=== PATIENT | female | born 1935 | race Caucasian/White ===

== ENCOUNTER → 2016-11-08 | Outpatient (CLI) | payer BC ==
[~2016-11-08] MED LIST: ACET325T96 PO; ASPEC81 PO; BISA10SU38 PR; CIME-56 PO; CIPR-255 PO; CLC100 PO; CRDCD180 PO; CYCL10TA6 PO; DILT1TAB50 PO; DXY100 PO; ENAL10TA88 PO; FSM70 PO; FURO-85 PO; LCTX; METO25TA56 PO; MOMLX PO; MULT-506 PO; SIMV-150 PO; SIMV20TA2 PO; SODI1ENE PR; TYL325X PO; VLTG EXT; ZNTT/150 PO
[2016-11-08 17:26] LABS: HEMATOCRIT 44.6 % (37-47); MEAN CELL VOLUME 87.5 fL (80-100); MEAN CORPUSCULAR HEMOGLOBIN 30.2 pg (25-34); MEAN CORPUSCULAR HGB CONC 34.5 g/dl (32-36); MEAN PLATELET VOLUME 11.2 fL (7.4-10.4); PLATELET COUNT 260 K/uL (130-400); WHITE BLOOD COUNT 6.21 K/uL (4.8-10.8)
[2016-11-08 17:35] LABS: URINE APPEARANCE CLEAR (CLEAR); URINE BILIRUBIN NEG (NEG); URINE COLOR YELLOW; URINE EPITHELIAL CELL AUTO >30 /lpf (0-5); URINE NITRITE NEG (NEG); URINE SPECIFIC GRAVITY 1.015 (1.000-1.030); UROBILINOGEN NEG (NEG)
[2016-11-08 17:36] LABS: MANUAL MICROSCOPIC REQUIRED? NO; REVIEW REQ? YES
[2016-11-08 17:38] LABS: ALT/SGPT 20 U/L (12-78); AST/SGOT 19 U/L (15-37); BLOOD UREA NITROGEN 17 mg/dl (7-18); BUN/CREATININE RATIO 17.8 (10-20); CALCIUM 9.6 mg/dl (8.5-10.1); CARBON DIOXIDE 22 mmol/L (21-32); CHLORIDE 105 mmol/L (98-107); CHOLESTEROL 186 mg/dl (0-200); CREATININE 0.95 mg/dl (0.60-1.20); GLUCOSE 113 mg/dl (70-99); POTASSIUM 4.1 mmol/L (3.5-5.1); SODIUM 140 mmol/L (136-145); TRIGLYCERIDES 93 mg/dl (0-150); VERY LOW DENSITY LIPOPROT CALC 19 mg/dl
[2016-11-08 17:43] LABS: ESTIMATED AVERAGE GLUCOSE 128 mg/dl; HA1C FLAG Normal (Normal)
[2016-11-08 17:48] LABS: ALB/GLOB RATIO 1.2 (0.9-2); ALKALINE PHOSPHATASE 86 U/L (45-117); CHOLESTEROL/HDL RATIO 1.8; HDL CHOLESTEROL 104 mg/dl; LDL CHOLESTEROL CALCULATED 63 mg/dl
== END | disposition home or self-care (01) ==
LOC: C.LABBFT 11:46
PROVIDERS: ATTEND Internal Medicine
DX: N39.0 Urinary tract infection, site not specified (principal); E11.9 Type 2 diabetes mellitus without complications; E78.00 Pure hypercholesterolemia, unspecified

== ENCOUNTER → 2016-11-20 | Outpatient (CLI) | payer BC | END | disposition home or self-care (01) | LOC: C.PAPS 13:58 | PROVIDERS: ATTEND Obstetrics & Gynecology | DX: Z12.4 Encounter for screening for malignant neoplasm of cervix (principal) ==

== ENCOUNTER → 2016-12-27 | Outpatient (CLI) | payer BC ==
--- NOTE | 2016-12-27 09:15 | DIAGNOSTIC IMAGING REPORT ---
CHEST 2 VIEWS ROUTINE CLINICAL HISTORY: Edema. COMPARISON STUDY: Chest radiograph March 09, 2008. FINDINGS: Lung volumes are normal. There is no consolidation to suggest pneumonia. Moderate cardiomegaly is noted. There is pulmonary vascular congestion without overt pulmonary edema. There is no pneumothorax or pleural effusion. IMPRESSION: 1. Moderate cardiomegaly. 2. Pulmonary vascular congestion without evidence of pulmonary edema. Electronically signed by: Bennett Marie M.D. 12/27/2016 9:12 AM Dictated Date/Time: 12/27/2016 9:11 AM
--- NOTE | 2016-12-27 09:20 | DIAGNOSTIC IMAGING REPORT ---
SI JOINTS 3 OR MORE VIEWS CLINICAL HISTORY: M46.1 [id number] pain COMPARISON STUDY: None FINDINGS: Mild degenerative sclerosis of the left and to a lesser extent right sacroiliac joint. No evidence of bony ankylosis. Sacral foramina are symmetric. IMPRESSION: Mild/moderate degenerative changes of the left and to lesser extent right sacroiliac joint. Electronically signed by: Luis Monae M.D. 12/27/2016 9:18 AM Dictated Date/Time: 12/27/2016 9:09 AM
== END | disposition home or self-care (01) ==
LOC: C.RAD1850 08:39
PROVIDERS: ATTEND Physician Assistant Medical
DX: R60.9 Edema, unspecified (principal); M46.1 Sacroiliitis, not elsewhere classified; I51.7 Cardiomegaly; R09.89 Other specified symptoms and signs involving the circulatory and respiratory systems

== ENCOUNTER → 2017-01-01 | Outpatient (CLI) | payer BC ==
[2017-01-01 19:24] LABS: BLOOD UREA NITROGEN 20 mg/dl (7-18); BUN/CREATININE RATIO 18.6 (10-20); CALCIUM 9.5 mg/dl (8.5-10.1); CARBON DIOXIDE 26 mmol/L (21-32); CHLORIDE 107 mmol/L (98-107); GLUCOSE 125 mg/dl (70-99); SODIUM 141 mmol/L (136-145)
== END | disposition home or self-care (01) ==
LOC: C.LABBFT 14:17
PROVIDERS: ATTEND Physician Assistant Medical
DX: R60.9 Edema, unspecified (principal)

== ENCOUNTER 2017-01-06 21:43 | Emergency (ER) | payer BC ==
[~2017-01-06] VITALS: Ht 152.4 cm; Wt 105.7 kg
[~2017-01-06 21:43] MED LIST changes: -ACET325T96 PO; -BISA10SU38 PR; -CIPR-255 PO; -CLC100 PO; -CYCL10TA6 PO; -DILT1TAB50 PO; -DXY100 PO; -FURO-85 PO; -MOMLX PO; -SIMV-150 PO; -SODI1ENE PR; -TYL325X PO; -VLTG EXT; -ZNTT/150 PO
[2017-01-06 21:52] VITALS: TEMP 36.7; Ht 152.4 cm; Wt 105.7 kg
--- NOTE | 2017-01-06 22:11 | EMERGENCY ROOM VISIT NOTE ---
History Report prepared by Felipe: Max Almanza Under the Supervision of: Dr. Stevie Noland M.D. First contact with patient: 21:59 Chief Complaint: FALL Stated Complaint: FALL History of Present Illness The patient is an 81 year old female who presents to the Emergency Room after a fall that occurred prior to arrival. She notes that she fell reaching for the phone. The patient denies tripping, but thinks she slipped on her slippers. The patient notes that she had 2 falls today. She scraped her face during the first fall she had today. A week and a half ago, the patient had another fall. She complains of tailbone and leg pain for the past week and a half since that fall. She notes that she gets sharp pain in her legs. The discomfort is relieved with rest and worsened with movement. Source of History: patient Onset: prior to arrival Position: other (global) Quality: sharp (pain in legs) Modifying Factors (Worsening): movement Modifying Factors (Relieving): rest Note: Other associated symptoms: scraped her face, tailbone and leg pain Review of Systems See HPI for pertinent positives & negatives. A total of 10 systems reviewed and were otherwise negative. Past Medical & Surgical Medical Problems: (1) No pertinent past medical history Family History No pertinent family history Social History Smoking Status: Never Smoker Housing Status: lives alone Occupation Status: retired Current/Historical Medications Scheduled Ciprofloxacin Hcl (Cipro), 1 TAB PO BID Diltiazem HCl Coated Beads (Diltiazem HCl ER), 240 MG PO QAM Enalapril (Vasotec), 10 MG PO BID Furosemide (Lasix), 20 MG PO QAM Ranitidine (Zantac), 150 MG PO BID Simvastatin (Simvastatin), 10 MG PO QPM Allergies Coded Allergies: Celecoxib (Verified Allergy, Unknown, RASH, BUT TAKEN IBUPROFEN WITHOUT PROBLEM, 01/06/17) Sulfa Drugs (Verified Allergy, Unknown, FROM CELEBREX ALLERGY?, 01/06/17) Physical Exam Vital Signs Date Time Temp Pulse Resp B/P Pulse Ox O2 Delivery O2 Flow Rate FiO2 01/07/17 00:35 89 18 105/55 95 01/06/17 23:37 85 18 138/70 96 Room Air 01/06/17 22:18 97 Room Air 01/06/17 21:55 81 01/06/17 21:52 36.7 79 18 147/89 97 Room Air Physical Exam GENERAL: Patient is a healthy-appearing well-nourished HEAD: Normocephalic atraumatic EYES: Ocular movements intact pupils equal and react to light OROPHARYNX mucous membranes are moist no exudates present no erythema or edema present NECK: Supple no nuchal rigidity CHEST: Good equal expansion LUNGS: Clear and equal to auscultation CARDIAC: Normal S1 and S2 ABDOMEN: Soft nontender no guarding BACK: No CVA tenderness EXTREMITIES: No pain upon palpation normal muscle strength in all groups no clubbing cyanosis or edema NEURO: Patient is following commands is answering questions appropriately. Alert and oriented x3 Cranial Nerves 2-12 grossly intact Medical Decision & Procedures ER Provider Diagnostic Interpretation: X-ray results as stated below per interpretation by me and the radiologist: CT HEAD WITHOUT CONTRAST (CT) CLINICAL HISTORY: Head trauma. Multiple falls. COMPARISON STUDY: MRI the brain dated 12/23/2013 TECHNIQUE: Axial CT of the brain is performed from the vertex to the skull base. IV contrast was not administered for this examination. CT DOSE: 537.48 mGy.cm FINDINGS: No intra or extra-axial mass lesions are visualized. There is no CT evidence of acute cortical infarction. There is no evidence of midline shift. There is no acute hemorrhage. No calvarial fractures are visualized. There are moderately extensive white matter hypodensities likely on a small vessel basis. There is a left occipital calcification. 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 There is no evidence of pathologic ventricular dilatation. There is no evidence of acute sinusitis IMPRESSION: 1. No acute intracranial findings 2. Moderately extensive white matter disease, likely on a small vessel ischemic basis. This remain similar to the prior study 3. Left occipital calcification, consistent with the patient's previously described cavernoma Electronically signed by: Rakan Daigle M.D. 01/06/2017 10:42 PM Dictated Date/Time: 01/06/2017 10:39 PM X-rays interpreted by me: One view of pelvis: no acute fractures, dislocations or subluxations. Two views of Right femur: no acute fractures, dislocations or subluxations. Two views of Left femur: no acute fractures, dislocations or subluxations. Laboratory Results 01/06/17 21:50 Red Blood Count 4.61, Mean Corpuscular Volume 88.3, Mean Corpuscular Hemoglobin 30.4, Mean Corpuscular Hemoglobin Concent 34.4, Mean Platelet Volume 10.4, Neutrophils (%) (Auto) 66.4, Lymphocytes (%) (Auto) 20.0, Monocytes (%) (Auto) 12.3, Eosinophils (%) (Auto) 0.9, Basophils (%) (Auto) 0.3, Neutrophils # (Auto ) 5.02, Lymphocytes # (Auto) 1.51, Monocytes # (Auto) 0.93, Eosinophils # (Auto ) 0.07, Basophils # (Auto) 0.02 01/06/17 21:50 Test 01/06/17 21:50 01/06/17 22:30 White Blood Count 7.56 K/uL (4.8-10.8) Red Blood Count 4.61 M/uL (4.2-5.4) Hemoglobin 14.0 g/dL (12.0-16.0) Hematocrit 40.7 % (37-47) Mean Corpuscular Volume 88.3 fL (80-100) Mean Corpuscular Hemoglobin 30.4 pg (25-34) Mean Corpuscular Hemoglobin Concent 34.4 g/dl (32-36) Platelet Count 245 K/uL (130-400) Mean Platelet Volume 10.4 fL (7.4-10.4) Neutrophils (%) (Auto) 66.4 % Lymphocytes (%) (Auto) 20.0 % Monocytes (%) (Auto) 12.3 % Eosinophils (%) (Auto) 0.9 % Basophils (%) (Auto) 0.3 % Neutrophils # (Auto) 5.02 K/uL (1.4-6.5) Lymphocytes # (Auto) 1.51 K/uL (1.2-3.4) Monocytes # (Auto) 0.93 K/uL (0.11-0.59) Eosinophils # (Auto) 0.07 K/uL (0-0.5) Basophils # (Auto) 0.02 K/uL (0-0.2) RDW Standard Deviation 45.8 fL (36.4-46.3) RDW Coefficient of Variation 14.1 % (11.5-14.5) Immature Granulocyte % (Auto) 0.1 % Immature Granulocyte # (Auto) 0.01 K/uL (0.00-0.02) Anion Gap 11.0 mmol/L (3-11) Est Creatinine Clear Calc Drug Dose 40.4 ml/min Estimated GFR () 49.1 Estimated GFR (Non- 42.4 BUN/Creatinine Ratio 20.8 (10-20) Calcium Level 9.4 mg/dl (8.5-10.1) Total Bilirubin 0.4 mg/dl (0.2-1) Direct Bilirubin 0.1 mg/dl (0-0.2) Aspartate Amino Transf (AST/SGOT) 17 U/L (15-37) Alanine Aminotransferase (ALT/SGPT) 19 U/L (12-78) Alkaline Phosphatase 86 U/L (45-117) Total Creatine Kinase 182 U/L (26-192) Creatine Kinase MB 2.7 ng/ml (0.5-3.6) Creatine Kinase MB Ratio 1.5 (0-3.0) Troponin I 0.027 ng/ml (0-0.045) Total Protein 7.4 gm/dl (6.4-8.2) Albumin 4.1 gm/dl (3.4-5.0) Urine Color YELLOW Urine Appearance CLEAR (CLEAR) Urine pH 7.0 (4.5-7.5) Urine Specific [place] 1.013 (1.000-1.030) Urine Protein NEG (NEG) Urine Glucose (UA) NEG (NEG) Urine Ketones NEG (NEG) Urine Occult Blood NEG (NEG) Urine Nitrite NEG (NEG) Urine Bilirubin NEG (NEG) Urine Urobilinogen NEG (NEG) Urine Leukocyte Esterase MODERATE (NEG) Urine WBC (Auto) 5-10 /hpf (0-5) Urine RBC (Auto) 0-4 /hpf (0-4) Urine Hyaline Casts (Auto) 0 /lpf (0-5) Urine Epithelial Cells (Auto) 10-20 /lpf (0-5) Urine Bacteria (Auto) NEG (NEG) Labs reviewed by ED physician. Medications Administered Medications (Trade) Dose Ordered Sig/Stuart Route Start Time Stop Time Status Last Admin Dose Admin Ceftriaxone Sodium (Rocephin Inj) 1 gm NOW STAT IV 01/06/17 22:55 01/06/17 22:56 DC 01/06/17 23:32 1 GM ED Course 2200: Past medical records reviewed. The patient was evaluated in room C11. A complete history and physical examination was performed. 2255: Ordered Rocephin Inj 1 gm IV. 2353: At this time, I reevaluated the patient she was able to walk to the bathroom without discomfort. She feels better and states that she is ready to go home. 0003: Upon reexamination the patient is resting comfortably. I discussed results and treatment plan with the patient. She verbalizes agreement and understanding. The patient is ready for discharge. Medical Decision Differential diagnosis: Etiologies such as metabolic, infection, hypo/hyperglycemia, electrolyte abnormalities, cardiac sources, intracerebral event, toxicologic, neurologic, as well as others were entertained. This is an 81-year-old female who presents emergency department complaining of multiple falls over 3 week.. The patient reports tonight that she fell after she slipped in a slipper. She is complaining of bilateral hip pain however she has good range of motion of the hips and her strength is intact. Based on her complaint she was sent for x-rays of the pelvis as well as the femurs. This did not show any acute fracture dislocation. I will treat the patient for her urine infection pending culture results. She was started on Rocephin in the emergency department and will be continued on Cipro at home. The patient was ambulated by nursing staff and did rather well and wishes to be discharged home. I stressed the need for follow-up with her primary care physician. Patient was in agreement with the treatment plan. Impression Primary Impression: Fall Additional Impression: UTI (urinary tract infection) Scribe Attestation The scribe's documentation has been prepared under my direction and personally reviewed by me in its entirety. I confirm that the note above accurately reflects all work, treatment, procedures, and medical decision making performed by me. Departure Information Dispostion Home / Self-Care Prescriptions Ciprofloxacin Hcl (CIPRO) 500 Mg Tab 1 TAB PO BID for 7 Days, #14 TAB Prov: Stevie Noland MD 01/07/17 Referrals Kennedy Ingram M.D. (PCP) Forms HOME CARE DOCUMENTATION FORM, IMPORTANT VISIT INFORMATION Patient Instructions ED Mechanical Fall, ED UTI Cystitis Female, My [facility] Additional Instructions Need follow up with Dr Felton's office for continued back and hip pain You have been examined and treated today on an emergency basis only. This is not a substitute for, or an effort to provide, complete comprehensive medical care. It is impossible to recognize and treat all injuries or illnesses in a single emergency department visit. It is therefore important that you follow up closely with Dr Ingram. Call as soon as possible for an appointment. Thank you for your time and consideration. I look forward to speaking with you again soon. Please don't hesitate to call us if you have any questions. Problem Qualifiers Primary Impression: Fall Encounter type: initial encounter Qualified Codes: W19.XXXA - Unspecified fall, initial encounter Additional Impression: UTI (urinary tract infection) Urinary tract infection type: acute cystitis Hematuria presence: without hematuria Qualified Codes: N30.00 - Acute cystitis without hematuria
[2017-01-06 22:16] LABS: BASO % 0.3 %; BASO ABS # 0.02 K/uL (0-0.2); COMPLETE YES; EOS % 0.9 %; HEMATOCRIT 40.7 % (37-47); IG% 0.1 %; LYMPH ABS # 1.51 K/uL (1.2-3.4); MEAN CELL VOLUME 88.3 fL (80-100); MEAN CORPUSCULAR HEMOGLOBIN 30.4 pg (25-34); MEAN CORPUSCULAR HGB CONC 34.4 g/dl (32-36); MEAN PLATELET VOLUME 10.4 fL (7.4-10.4); MONO % 12.3 %; NEUT % 66.4 %; PLATELET COUNT 245 K/uL (130-400); RED BLOOD COUNT 4.61 M/uL (4.2-5.4); WHITE BLOOD COUNT 7.56 K/uL (4.8-10.8)
[2017-01-06 22:18] VITALS: O2SAT 97
--- NOTE | 2017-01-06 22:44 | DIAGNOSTIC IMAGING REPORT ---
CT HEAD WITHOUT CONTRAST (CT) CLINICAL HISTORY: Head trauma. Multiple falls. COMPARISON STUDY: MRI the brain dated 12/23/2013 TECHNIQUE: Axial CT of the brain is performed from the vertex to the skull base. IV contrast was not administered for this examination. CT DOSE: 537.48 mGy.cm FINDINGS: No intra or extra-axial mass lesions are visualized. There is no CT evidence of acute cortical infarction. There is no evidence of midline shift. There is no acute hemorrhage. No calvarial fractures are visualized. There are moderately extensive white matter hypodensities likely on a small vessel basis. There is a left occipital calcification. 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 There is no evidence of pathologic ventricular dilatation. There is no evidence of acute sinusitis IMPRESSION: 1. No acute intracranial findings 2. Moderately extensive white matter disease, likely on a small vessel ischemic basis. This remain similar to the prior study 3. Left occipital calcification, consistent with the patient's previously described cavernoma Electronically signed by: Rakan Daigle M.D. 01/06/2017 10:42 PM Dictated Date/Time: 01/06/2017 10:39 PM
[2017-01-06 22:45] LABS: URINE APPEARANCE CLEAR (CLEAR); URINE BILIRUBIN NEG (NEG); URINE COLOR YELLOW; URINE NITRITE NEG (NEG); URINE SPECIFIC GRAVITY 1.013 (1.000-1.030); UROBILINOGEN NEG (NEG)
[2017-01-06 22:46] LABS: MANUAL MICROSCOPIC REQUIRED? NO; REVIEW REQ? NO
[2017-01-06] MEDS ORDERED: CEFTRIAXONE SOD INJ 1 GM ADDVIAL IV STA (22:55)
[2017-01-06 22:58] LABS: POTASSIUM 3.7 mmol/L (3.5-5.1)
[2017-01-06] MEDS ORDERED: DILT1TAB50 PO (23:00)
[2017-01-06] MEDS ORDERED: SIMV-150 PO (23:00)
[2017-01-06] MEDS ORDERED: ZNTT/150 PO (23:01)
[2017-01-06] MEDS ORDERED: FURO-85 PO (23:01)
[2017-01-06 23:18] LABS: BUN/CREATININE RATIO 20.8 (10-20); CALCIUM 9.4 mg/dl (8.5-10.1); CKMB/CK RATIO 1.5 (0-3.0); CREATININE 1.2 mg/dl (0.60-1.20)
[2017-01-07] MEDS ORDERED: CIPR-255 PO (00:04)
[2017-01-07 00:35] VITALS: BP 105/55; PULSE 89; O2SAT 95
--- NOTE | 2017-01-07 07:41 | DIAGNOSTIC IMAGING REPORT ---
RIGHT FEMUR 2 VIEWS ROUTINE CLINICAL HISTORY: Pt c/o b/l hip pain Right pain COMPARISON: None. DISCUSSION: Moderate degenerative change of the right hip as well as right knee. No well-defined acute bony abnormality. Cortical margins are intact. There is no evidence for soft tissue swelling. IMPRESSION: Moderate degenerative change. No acute bony abnormality. Electronically signed by: Luis Monae M.D. 01/07/2017 7:39 AM Dictated Date/Time: 01/07/2017 7:39 AM
--- NOTE | 2017-01-07 07:42 | DIAGNOSTIC IMAGING REPORT ---
PELVIS 1 OR 2 VIEW ROUTINE CLINICAL HISTORY: Pt c/o b/l hip pain s/p fall COMPARISON STUDY: SI joints 12/27/2016. FINDINGS: Mild degenerative changes within the bilateral sacroiliac joints. The sacrum appears intact. No fracture or dislocation within the pelvis or hips. Soft tissues are unremarkable. IMPRESSION: No fracture or dislocation within the pelvis or hips. Electronically signed by: Daniel Luna M.D. 01/07/2017 7:40 AM Dictated Date/Time: 01/07/2017 7:39 AM
--- NOTE | 2017-01-07 07:42 | DIAGNOSTIC IMAGING REPORT ---
LEFT FEMUR 2 VIEWS ROUTINE CLINICAL HISTORY: Pt c/o b/l hip pain s/p fall trauma. Pain. COMPARISON: None. DISCUSSION: Moderate degenerative change left hip. Prior total left knee arthroplasty. No acute bony abnormality. Study is negative for fracture. There is no evidence for soft tissue swelling. IMPRESSION: No acute process. Chronic and postoperative change. Electronically signed by: Luis Monae M.D. 01/07/2017 7:40 AM Dictated Date/Time: 01/07/2017 7:40 AM
[2017-01-22] MEDS ORDERED: CYCL10TA6 PO (15:11)
== END 2017-01-07 00:36 | disposition home or self-care (01) ==
LOC: EDBD 21:43 → C.EDC 21:46
DX: M25.551 Pain in right hip (principal); M25.552 Pain in left hip; N39.0 Urinary tract infection, site not specified; W01.10XA Fall on same level from slipping, tripping and stumbling with subsequent striking against unspecified object, initial encounter; Z91.81 History of falling; Z79.899 Other long term (current) drug therapy

== ENCOUNTER 2017-01-24 08:03 | Observation (INO) | payer BC ==
[~2017-01-24] VITALS: Ht 149.9 cm; Wt 103.0 kg
[~2017-01-24 08:03] MED LIST changes: -ASPEC81 PO; -CIME-56 PO; -CRDCD180 PO; +CYCL10TA6 PO; +DILT1TAB50 PO; -FSM70 PO; +FURO-85 PO; -LCTX; -METO25TA56 PO; -MULT-506 PO; +SIMV-150 PO; -SIMV20TA2 PO; +ZNTT/150 PO
[2017-01-24 09:20] LABS: BASO % 0.2 %; BASO ABS # 0.02 K/uL (0-0.2); COMPLETE YES; EOS % 0.8 %; HEMATOCRIT 41.5 % (37-47); IG% 0.1 %; LYMPH % 12.6 %; LYMPH ABS # 1.16 K/uL (1.2-3.4); MEAN CORPUSCULAR HEMOGLOBIN 30.6 pg (25-34); MEAN PLATELET VOLUME 10.3 fL (7.4-10.4); MONO % 11.1 %; NEUT % 75.2 %; PLATELET COUNT 254 K/uL (130-400); RED BLOOD COUNT 4.61 M/uL (4.2-5.4); WHITE BLOOD COUNT 9.19 K/uL (4.8-10.8)
[2017-01-24 09:22] LABS: PARTIAL THROMBOPLASTIN RATIO 1.1; PROTHROMBIN TIME (PATIENT) 11.2 SECONDS (9.0-12.0)
[2017-01-24 09:39] LABS: BUN/CREATININE RATIO 19.2 (10-20); CALCIUM 9.3 mg/dl (8.5-10.1); CREATININE 0.95 mg/dl (0.60-1.20); MAGNESIUM 2.4 mg/dl (1.8-2.4); POTASSIUM 3.7 mmol/L (3.5-5.1)
[2017-01-24 09:48] LABS: THYROID STIMULATING HORMONE 2.38 uIu/ml (0.300-4.500)
--- NOTE | 2017-01-24 10:14 | DIAGNOSTIC IMAGING REPORT ---
RIGHT HIP UNILATERAL 2 VIEWS CLINICAL HISTORY: Right hip pain following fall. COMPARISON: Pelvis and right femur radiographs January 06, 2017. FINDINGS: Alignment of the right hip is anatomic. No acute fracture is identified. There is mild osteophytosis of the right hip. IMPRESSION: No acute fracture or dislocation of the right hip. Electronically signed by: Bennett Marie M.D. 01/24/2017 10:13 AM Dictated Date/Time: 01/24/2017 10:12 AM
--- NOTE | 2017-01-24 12:23 | DIAGNOSTIC IMAGING REPORT ---
SINGLE VIEW PELVIS CLINICAL HISTORY: Fall. Pelvic pain. FINDINGS: 2 AP portable views of the pelvis are compared to study dated 01/22/2017. The examination is degraded by large body habitus. The skeletal structures are osteopenic. There is no radiographic evidence of fracture involving the hips or bony pelvis. Mild arthritic change is noted in the hips. Sclerotic change is seen involving the sacroiliac joints and pubic symphysis. Calcified phlebolith are observed in the pelvis. There is a nonobstructed abdominal bowel gas pattern. The overlying soft tissues are within normal limits. IMPRESSION: There is no radiographic evidence of fracture involving the hips or bony pelvis. Electronically signed by: Rio Purcell M.D. 01/24/2017 12:22 PM Dictated Date/Time: 01/24/2017 12:20 PM
[2017-01-24 12:57] LABS: URINE APPEARANCE CLOUDY (CLEAR); URINE BILIRUBIN NEG (NEG); URINE COLOR YELLOW; URINE NITRITE POS (NEG); URINE PH 7.5 (4.5-7.5); URINE SPECIFIC GRAVITY 1.013 (1.000-1.030); UROBILINOGEN NEG (NEG)
[2017-01-24 12:59] LABS: MANUAL MICROSCOPIC REQUIRED? NO; REVIEW REQ? YES
[2017-01-24] MEDS ORDERED: CEFTRIAXONE SOD INJ 1 GM ADDVIAL IV STA (13:15)
--- NOTE | 2017-01-24 13:54 | EMERGENCY ROOM VISIT NOTE ---
History Report prepared by Felipe: Heather Castillo Under the Supervision of: Dr. Maurice Rene M.D. First contact with patient: 08:04 Stated Complaint: FALL History of Present Illness The patient is an 81 year old female who presents to the Emergency Room with complaints of a fall that occurred earlier this morning. She was brought to the ED via EMS from [facility], where she resides. The patient reports she got out of bed to get a drink of water this morning and "slid" trying to get back into her bed. She was unable to get up due to weakness, so she called an ambulance. She believes she may have sustained a bruise to her right shoulder during the incident. The patient denies any loss of consciousness or major injuries. She states her right hip is somewhat sore, but this may be from an old injury. She also notes she hit her left hip during the fall, but it is not currently painful. The patient admits she has been experiencing more mechanical falls recently and notes she does live alone. Pt denies LOC, headache, fevers, chills, diaphoresis, visual changes, neck pain, chest pain, breathing difficulties, nausea, vomiting, abdominal pain, back pain, melena, hematochezia , urinary symptoms, numbness, lymphadenopathy, rash, or other complaints. Source of History: patient Onset: Earlier this morning Position: other (global) Quality: other (fall) Timing: resolved Review of Systems See HPI for pertinent positives and negatives. A total of ten systems were reviewed and were otherwise negative. Past Medical & Surgical Medical Problems: (1) No pertinent past medical history Family History No pertinent family history Social History Smoking Status: Never Smoker Alcohol Use: none Drug Use: none Marital Status: Housing Status: lives alone Occupation Status: retired Current/Historical Medications Scheduled Cyclobenzaprine Hcl (Flexeril), 1 TAB PO TID Diltiazem HCl Coated Beads (Diltiazem HCl ER), 240 MG PO QAM Enalapril (Vasotec), 10 MG PO BID Furosemide (Lasix), 20 MG PO QAM Ranitidine (Zantac), 150 MG PO BID Simvastatin (Simvastatin), 10 MG PO QPM Allergies Coded Allergies: Celecoxib (Verified Allergy, Unknown, RASH, BUT TAKEN IBUPROFEN WITHOUT PROBLEM, 01/24/17) Sulfa Drugs (Verified Allergy, Unknown, FROM CELEBREX ALLERGY?, 01/24/17) Physical Exam Vital Signs Date Time Temp Pulse Resp B/P Pulse Ox O2 Delivery O2 Flow Rate FiO2 01/24/17 14:32 79 20 131/68 94 Room Air 01/24/17 12:25 72 01/24/17 12:23 71 18 139/86 94 Room Air 01/24/17 09:57 76 16 139/78 95 Room Air 01/24/17 09:05 96 Room Air 01/24/17 08:13 36.6 76 16 136/68 96 Room Air 01/24/17 08:10 75 Physical Exam GENERAL: Awake, alert, well-appearing, in no distress HENT: Normocephalic, atraumatic. Oropharynx unremarkable. EYES: Normal conjunctiva. Sclera non-icteric. NECK: Supple. No nuchal rigidity. FROM. No JVD. RESPIRATORY: Clear to auscultation. CARDIAC: Regular rate, normal rhythm. Extremities warm and well perfused. Pulses equal. ABDOMEN: Soft, non-distended. No tenderness to palpation. No rebound or guarding. No masses. RECTAL: Deferred. MUSCULOSKELETAL: Chest examination reveals no tenderness. The back is symmetrical on inspection without obvious abnormality. There is no CVA tenderness to palpation. No joint edema. Bruise to the right triceps area, no bony tenderness, normal ROM. LOWER EXTREMITIES: Right hip tenderness. Calves are equal size bilaterally and non-tender. 3+ edema in LE. No discoloration. NEURO: Normal sensorium. No focal sensory or motor deficits noted. Mild generalized weakness. SKIN: No rash or jaundice noted. Medical Decision & Procedures ER Provider Diagnostic Interpretation: These X-Rays were reviewed and interpreted by myself and the radiologist. RIGHT HIP UNILATERAL 2 VIEWS CLINICAL HISTORY: Right hip pain following fall. COMPARISON: Pelvis and right femur radiographs January 06, 2017. FINDINGS: Alignment of the right hip is anatomic. No acute fracture is identified. There is mild osteophytosis of the right hip. IMPRESSION: No acute fracture or dislocation of the right hip. Electronically signed by: Bennett Marie M.D. 01/24/2017 10:13 AM SINGLE VIEW PELVIS CLINICAL HISTORY: Fall. Pelvic pain. FINDINGS: 2 AP portable views of the pelvis are compared to study dated 01/22/2017. The examination is degraded by large body habitus. The skeletal structures are osteopenic. There is no radiographic evidence of fracture involving the hips or bony pelvis. Mild arthritic change is noted in the hips. Sclerotic change is seen involving the sacroiliac joints and pubic symphysis. Calcified phlebolith are observed in the pelvis. There is a nonobstructed abdominal bowel gas pattern. The overlying soft tissues are within normal limits. IMPRESSION: There is no radiographic evidence of fracture involving the hips or bony pelvis. Electronically signed by: Rio Purcell M.D. 01/24/2017 12:22 PM Laboratory Results 01/24/17 08:55 Red Blood Count 4.61, Mean Corpuscular Volume 90.0, Mean Corpuscular Hemoglobin 30.6, Mean Corpuscular Hemoglobin Concent 34.0, Mean Platelet Volume 10.3, Neutrophils (%) (Auto) 75.2, Lymphocytes (%) (Auto) 12.6, Monocytes (%) (Auto) 11.1, Eosinophils (%) (Auto) 0.8, Basophils (%) (Auto) 0.2, Neutrophils # (Auto ) 6.91, Lymphocytes # (Auto) 1.16, Monocytes # (Auto) 1.02, Eosinophils # (Auto ) 0.07, Basophils # (Auto) 0.02 01/24/17 08:55 Test 01/24/17 08:55 01/24/17 12:30 White Blood Count 9.19 K/uL (4.8-10.8) Red Blood Count 4.61 M/uL (4.2-5.4) Hemoglobin 14.1 g/dL (12.0-16.0) Hematocrit 41.5 % (37-47) Mean Corpuscular Volume 90.0 fL (80-100) Mean Corpuscular Hemoglobin 30.6 pg (25-34) Mean Corpuscular Hemoglobin Concent 34.0 g/dl (32-36) Platelet Count 254 K/uL (130-400) Mean Platelet Volume 10.3 fL (7.4-10.4) Neutrophils (%) (Auto) 75.2 % Lymphocytes (%) (Auto) 12.6 % Monocytes (%) (Auto) 11.1 % Eosinophils (%) (Auto) 0.8 % Basophils (%) (Auto) 0.2 % Neutrophils # (Auto) 6.91 K/uL (1.4-6.5) Lymphocytes # (Auto) 1.16 K/uL (1.2-3.4) Monocytes # (Auto) 1.02 K/uL (0.11-0.59) Eosinophils # (Auto) 0.07 K/uL (0-0.5) Basophils # (Auto) 0.02 K/uL (0-0.2) RDW Standard Deviation 47.0 fL (36.4-46.3) RDW Coefficient of Variation 14.3 % (11.5-14.5) Immature Granulocyte % (Auto) 0.1 % Immature Granulocyte # (Auto) 0.01 K/uL (0.00-0.02) Prothrombin Time 11.2 SECONDS (9.0-12.0) Prothromb Time International Ratio 1.0 (0.9-1.1) Activated Partial Thromboplast Time 29.2 SECONDS (21.0-31.0) Partial Thromboplastin Ratio 1.1 Anion Gap 8.0 mmol/L (3-11) Est Creatinine Clear Calc Drug Dose 49.2 ml/min Estimated GFR () 65.1 Estimated GFR (Non- 56.2 BUN/Creatinine Ratio 19.2 (10-20) Calcium Level 9.3 mg/dl (8.5-10.1) Magnesium Level 2.4 mg/dl (1.8-2.4) Total Bilirubin 0.8 mg/dl (0.2-1) Direct Bilirubin 0.2 mg/dl (0-0.2) Aspartate Amino Transf (AST/SGOT) 14 U/L (15-37) Alanine Aminotransferase (ALT/SGPT) 18 U/L (12-78) Alkaline Phosphatase 67 U/L (45-117) Troponin I 0.028 ng/ml (0-0.045) Pro-B-Type Natriuretic Peptide 91 pg/ml (0-1800) Total Protein 7.1 gm/dl (6.4-8.2) Albumin 3.9 gm/dl (3.4-5.0) Lipase 155 U/L (73-393) Thyroid Stimulating Hormone (TSH) 2.380 uIu/ml (0.300-4.500) Urine Color YELLOW Urine Appearance CLOUDY (CLEAR) Urine pH 7.5 (4.5-7.5) Urine Specific [place] 1.013 (1.000-1.030) Urine Protein NEG (NEG) Urine Glucose (UA) NEG (NEG) Urine Ketones NEG (NEG) Urine Occult Blood NEG (NEG) Urine Nitrite POS (NEG) Urine Bilirubin NEG (NEG) Urine Urobilinogen NEG (NEG) Urine Leukocyte Esterase SMALL (NEG) Urine WBC (Auto) 10-30 /hpf (0-5) Urine RBC (Auto) 0-4 /hpf (0-4) Urine Hyaline Casts (Auto) 1-5 /lpf (0-5) Urine Epithelial Cells (Auto) 10-20 /lpf (0-5) Urine Bacteria (Auto) 4+ (NEG) Urine Renal Epithelial Cells 0-5 /lpf (0-5) Laboratory results reviewed by me Medications Administered Medications (Trade) Dose Ordered Sig/Stuart Route Start Time Stop Time Status Last Admin Dose Admin Ceftriaxone Sodium (Rocephin Inj) 1 gm NOW STAT IV 01/24/17 13:15 01/24/17 13:17 DC 01/24/17 13:45 1 GM ED Course 0826: The patient was evaluated in room B5. A complete history and physical exam was performed. 1135: Case Management is working on getting the patient Physical Therapy and Occupational Therapy referrals. 1315: Rocephin 1 gm IV. 1350: I reevaluated the patient. Nursing and Case Management will work on a PT and OT referral for the patient. Medical Decision Triage Nursing notes reviewed. The patient's presentation and history were concerning for a fall and weakness. Etiologies such as contusion, fracture, strain, sprain, metabolic, infection, hypo/hyperglycemia, electrolyte abnormalities, cardiac sources, intracerebral event, toxicologic, neurologic, as well as others were entertained. The patient was evaluated. She had some right hip tenderness only with range of motion. There is no head injury present. She was awake and alert. Blood work imaging and urinalysis were obtained. The patient has no evidence of hip fracture or pelvic fracture. She has unremarkable CBC and chemistry panel. She has findings concerning for a UTI. She was given IV Rocephin. The patient was given lunch. Physical therapy and occupational therapy consults were performed. I was concerned about deconditioning. Family was concerned about her ability to function alone given her current state. The patient was accepted at [facility] pending insurance approval. The chart was completed utilizing Dragon Speech voice recognition software. Grammatical errors, random word insertions, pronoun errors, and incomplete sentences are an occasional consequence of this system due to software limitations, ambient noise, and hardware issues. Any formal questions or concerns about the content, text, or information contained within the body of this dictation should be directly addressed to the physician for clarification. Impression Primary Impression: Weakness Additional Impressions: UTI (urinary tract infection) Hip pain Scribe Attestation The scribe's documentation has been prepared under my direction and personally reviewed by me in its entirety. I confirm that the note above accurately reflects all work, treatment, procedures, and medical decision making performed by me. Departure Information Dispostion Transfer Acute Care Facility Referrals Kennedy Ingram M.D. (PCP) Problem Qualifiers
--- NOTE | 2017-01-24 17:55 | EMERGENCY ROOM VISIT NOTE ---
ED Visit Note Received this patient in signout from Dr. Rene. History and physical verified by me. Patient is awaiting callback from insurance company over whether or not the patient qualifies for rehabilitation stay. According to the physician preparation supervisor freezing for the insurance copy the patient does not meet rehabilitation right area however she does meet fpc facility criteria. At this point the phone call came 10 hours into this patient's stay and it is now past 5 PM on a Friday afternoon. Based on these findings I felt that the patient should be admitted to the hospital pending fpc facility placement. Case management is in agreement with this. Current/Historical Medications Scheduled Cyclobenzaprine Hcl (Flexeril), 1 TAB PO TID Diltiazem HCl Coated Beads (Diltiazem HCl ER), 240 MG PO QAM Enalapril (Vasotec), 10 MG PO BID Furosemide (Lasix), 20 MG PO QAM Ranitidine (Zantac), 150 MG PO BID Simvastatin (Simvastatin), 10 MG PO QPM Allergies Coded Allergies: Celecoxib (Verified Allergy, Unknown, RASH, BUT TAKEN IBUPROFEN WITHOUT PROBLEM, 01/24/17) Sulfa Drugs (Verified Allergy, Unknown, FROM CELEBREX ALLERGY?, 01/24/17) Vital Signs Date Time Temp Pulse Resp B/P Pulse Ox O2 Delivery O2 Flow Rate FiO2 01/24/17 16:00 67 20 112/69 93 Room Air 01/24/17 14:32 79 20 131/68 94 Room Air 01/24/17 12:25 72 01/24/17 12:23 71 18 139/86 94 Room Air 01/24/17 09:57 76 16 139/78 95 Room Air 01/24/17 09:05 96 Room Air 01/24/17 08:13 36.6 76 16 136/68 96 Room Air 01/24/17 08:10 75 Laboratory Results 01/24/17 08:55 Red Blood Count 4.61, Mean Corpuscular Volume 90.0, Mean Corpuscular Hemoglobin 30.6, Mean Corpuscular Hemoglobin Concent 34.0, Mean Platelet Volume 10.3, Neutrophils (%) (Auto) 75.2, Lymphocytes (%) (Auto) 12.6, Monocytes (%) (Auto) 11.1, Eosinophils (%) (Auto) 0.8, Basophils (%) (Auto) 0.2, Neutrophils # (Auto ) 6.91, Lymphocytes # (Auto) 1.16, Monocytes # (Auto) 1.02, Eosinophils # (Auto ) 0.07, Basophils # (Auto) 0.02 01/24/17 08:55 Test 01/24/17 08:55 01/24/17 12:30 White Blood Count 9.19 K/uL (4.8-10.8) Red Blood Count 4.61 M/uL (4.2-5.4) Hemoglobin 14.1 g/dL (12.0-16.0) Hematocrit 41.5 % (37-47) Mean Corpuscular Volume 90.0 fL (80-100) Mean Corpuscular Hemoglobin 30.6 pg (25-34) Mean Corpuscular Hemoglobin Concent 34.0 g/dl (32-36) Platelet Count 254 K/uL (130-400) Mean Platelet Volume 10.3 fL (7.4-10.4) Neutrophils (%) (Auto) 75.2 % Lymphocytes (%) (Auto) 12.6 % Monocytes (%) (Auto) 11.1 % Eosinophils (%) (Auto) 0.8 % Basophils (%) (Auto) 0.2 % Neutrophils # (Auto) 6.91 K/uL (1.4-6.5) Lymphocytes # (Auto) 1.16 K/uL (1.2-3.4) Monocytes # (Auto) 1.02 K/uL (0.11-0.59) Eosinophils # (Auto) 0.07 K/uL (0-0.5) Basophils # (Auto) 0.02 K/uL (0-0.2) RDW Standard Deviation 47.0 fL (36.4-46.3) RDW Coefficient of Variation 14.3 % (11.5-14.5) Immature Granulocyte % (Auto) 0.1 % Immature Granulocyte # (Auto) 0.01 K/uL (0.00-0.02) Prothrombin Time 11.2 SECONDS (9.0-12.0) Prothromb Time International Ratio 1.0 (0.9-1.1) Activated Partial Thromboplast Time 29.2 SECONDS (21.0-31.0) Partial Thromboplastin Ratio 1.1 Anion Gap 8.0 mmol/L (3-11) Est Creatinine Clear Calc Drug Dose 49.2 ml/min Estimated GFR () 65.1 Estimated GFR (Non- 56.2 BUN/Creatinine Ratio 19.2 (10-20) Calcium Level 9.3 mg/dl (8.5-10.1) Magnesium Level 2.4 mg/dl (1.8-2.4) Total Bilirubin 0.8 mg/dl (0.2-1) Direct Bilirubin 0.2 mg/dl (0-0.2) Aspartate Amino Transf (AST/SGOT) 14 U/L (15-37) Alanine Aminotransferase (ALT/SGPT) 18 U/L (12-78) Alkaline Phosphatase 67 U/L (45-117) Troponin I 0.028 ng/ml (0-0.045) Pro-B-Type Natriuretic Peptide 91 pg/ml (0-1800) Total Protein 7.1 gm/dl (6.4-8.2) Albumin 3.9 gm/dl (3.4-5.0) Lipase 155 U/L (73-393) Thyroid Stimulating Hormone (TSH) 2.380 uIu/ml (0.300-4.500) Urine Color YELLOW Urine Appearance CLOUDY (CLEAR) Urine pH 7.5 (4.5-7.5) Urine Specific [place] 1.013 (1.000-1.030) Urine Protein NEG (NEG) Urine Glucose (UA) NEG (NEG) Urine Ketones NEG (NEG) Urine Occult Blood NEG (NEG) Urine Nitrite POS (NEG) Urine Bilirubin NEG (NEG) Urine Urobilinogen NEG (NEG) Urine Leukocyte Esterase SMALL (NEG) Urine WBC (Auto) 10-30 /hpf (0-5) Urine RBC (Auto) 0-4 /hpf (0-4) Urine Hyaline Casts (Auto) 1-5 /lpf (0-5) Urine Epithelial Cells (Auto) 10-20 /lpf (0-5) Urine Bacteria (Auto) 4+ (NEG) Urine Renal Epithelial Cells 0-5 /lpf (0-5) Medications Administered Medications (Trade) Dose Ordered Sig/Stuart Route Start Time Stop Time Status Last Admin Dose Admin Ceftriaxone Sodium (Rocephin Inj) 1 gm NOW STAT IV 01/24/17 13:15 01/24/17 13:17 DC 01/24/17 13:45 1 GM Departure Information Impression Primary Impression: Weakness Additional Impressions: UTI (urinary tract infection) Hip pain Dispostion Transfer Acute Care Facility Referrals Kennedy Ingram M.D. (PCP) Patient Instructions [facility] Problem Qualifiers
[2017-01-24] MEDS ORDERED: ONDANSETRON INJ 2 MG/ML 2 ML VIAL IV PRN (19:15)
--- NOTE | 2017-01-24 19:18 | History and Physical ---
History & Physical Date & Time of Service: January 24, 2017 at 19:09 Chief Complaint: FALL Primary Care Physician: Kennedy Ingram M.D. History of Present Illness Source: patient, family, clinic records, hospital records This patient is a pleasant 81-year-old female that presented to the emergency department in the middle of the night last night with complaints of a fall. The patient lives by herself. She reportedly had a muscle spasm in her lower back that caused her to slumped to the ground. She denies any current pain. She was having some Right hip pain. Imaging in the emergency department was performed. No fractures noted per x-ray. The patient has had increasingly frequent falls at home. None have sounds syncopal in nature. She denies any dizziness or lightheadedness. No chest pain, heart palpitations or pressure. She reports eating and drinking normally. the patient initially had a fall this past October where she tripped over her vacuum drum cleaner. She has had bilateral lower back pain since. She has seen her family doctor for this. She was diagnosed with sacroiliitis. She was put on muscle relaxants. I spoke with the son privately. He does note that the patient seems slightly confused today. This is unusual for her. Past Medical/Surgical History Hypertension Lower extremity edema Hyperlipidemia Family History No pertinent family history Omitted secondary to age Social History Smoking Status: Never Smoker Drug Use: none Marital Status: Housing status: lives alone Occupational Status: retired Immunizations History of Influenza Vaccine: N/A History of Tetanus Vaccine?: Unknown History of Pneumococcal: Yes History of Hepatitis B Vaccine: No Multi-Drug Resistant Organisms History of MDRO: No Allergies Coded Allergies: Celecoxib (Verified Allergy, Unknown, RASH, BUT TAKEN IBUPROFEN WITHOUT PROBLEM, 01/24/17) Sulfa Drugs (Verified Allergy, Unknown, FROM CELEBREX ALLERGY?, 01/24/17) Home Medications Scheduled Cyclobenzaprine Hcl (Flexeril), 1 TAB PO TID Diltiazem HCl Coated Beads (Diltiazem HCl ER), 240 MG PO QAM Enalapril (Vasotec), 10 MG PO BID Furosemide (Lasix), 20 MG PO QAM Ranitidine (Zantac), 150 MG PO BID Simvastatin (Simvastatin), 10 MG PO QPM Review of Systems 10 system review performed and negative unless noted in HPI or below Physical Exam Vital Signs Date Time Temp Pulse Resp B/P Pulse Ox O2 Delivery O2 Flow Rate FiO2 01/24/17 18:31 86 18 132/112 94 Room Air 01/24/17 16:00 67 20 112/69 93 Room Air 01/24/17 14:32 79 20 131/68 94 Room Air 01/24/17 12:25 72 01/24/17 12:23 71 18 139/86 94 Room Air 01/24/17 09:57 76 16 139/78 95 Room Air 01/24/17 09:05 96 Room Air 01/24/17 08:13 36.6 76 16 136/68 96 Room Air 01/24/17 08:10 75 General Appearance: no apparent distress Head: normocephalic Eyes: EOMI ENT: + pertinent finding (oral mucosa slightly dry.) Neck: no JVD Respiratory/Chest: lungs clear Cardiovascular: regular rate, rhythm Abdomen/GI: normal bowel sounds, non tender, soft Back: + pertinent finding (back exam is limited as the patient is reluctant to rollover.) Extremities/Musculoskelatal: + pertinent finding (+1 pitting edema in the lower extremities bilaterally. No significant tenderness or erythema noted.) Neurologic/Psych: + pertinent finding (alert and oriented to person and place. Unsure of the year.) Skin: warm/dry Diagnostics Laboratory Results Results Past 24 Hours Test 01/24/17 08:55 01/24/17 12:30 Range/Units White Blood Count 9.19 4.8-10.8 K/uL Red Blood Count 4.61 4.2-5.4 M/uL Hemoglobin 14.1 12.0-16.0 g/dL Hematocrit 41.5 37-47 % Mean Corpuscular Volume 90.0 80-100 fL Mean Corpuscular Hemoglobin 30.6 25-34 pg Mean Corpuscular Hemoglobin Concent 34.0 32-36 g/dl Platelet Count 254 130-400 K/uL Mean Platelet Volume 10.3 7.4-10.4 fL Neutrophils (%) (Auto) 75.2 % Lymphocytes (%) (Auto) 12.6 % Monocytes (%) (Auto) 11.1 % Eosinophils (%) (Auto) 0.8 % Basophils (%) (Auto) 0.2 % Neutrophils # (Auto) 6.91 1.4-6.5 K/uL Lymphocytes # (Auto) 1.16 1.2-3.4 K/uL Monocytes # (Auto) 1.02 0.11-0.59 K/uL Eosinophils # (Auto) 0.07 0-0.5 K/uL Basophils # (Auto) 0.02 0-0.2 K/uL RDW Standard Deviation 47.0 36.4-46.3 fL RDW Coefficient of Variation 14.3 11.5-14.5 % Immature Granulocyte % (Auto) 0.1 % Immature Granulocyte # (Auto) 0.01 0.00-0.02 K/uL Prothrombin Time 11.2 9.0-12.0 SECONDS Prothromb Time International Ratio 1.0 0.9-1.1 Activated Partial Thromboplast Time 29.2 21.0-31.0 SECONDS Partial Thromboplastin Ratio 1.1 Sodium Level 141 136-145 mmol/L Potassium Level 3.7 3.5-5.1 mmol/L Chloride Level 105 98-107 mmol/L Carbon Dioxide Level 28 21-32 mmol/L Anion Gap 8.0 3-11 mmol/L Blood Urea Nitrogen 18 7-18 mg/dl Creatinine 0.95 0.60-1.20 mg/dl Est Creatinine Clear Calc Drug Dose 49.2 ml/min Estimated GFR () 65.1 Estimated GFR (Non- 56.2 BUN/Creatinine Ratio 19.2 10-20 Random Glucose 122 70-99 mg/dl Calcium Level 9.3 8.5-10.1 mg/dl Magnesium Level 2.4 1.8-2.4 mg/dl Total Bilirubin 0.8 0.2-1 mg/dl Direct Bilirubin 0.2 0-0.2 mg/dl Aspartate Amino Transf (AST/SGOT) 14 15-37 U/L Alanine Aminotransferase (ALT/SGPT) 18 12-78 U/L Alkaline Phosphatase 67 45-117 U/L Troponin I 0.028 0-0.045 ng/ml Pro-B-Type Natriuretic Peptide 91 0-1800 pg/ml Total Protein 7.1 6.4-8.2 gm/dl Albumin 3.9 3.4-5.0 gm/dl Lipase 155 73-393 U/L Thyroid Stimulating Hormone (TSH) 2.380 0.300-4.500 uIu/ml Urine Color YELLOW Urine Appearance CLOUDY CLEAR Urine pH 7.5 4.5-7.5 Urine Specific [place] 1.013 1.000-1.030 Urine Protein NEG NEG Urine Glucose (UA) NEG NEG Urine Ketones NEG NEG Urine Occult Blood NEG NEG Urine Nitrite POS NEG Urine Bilirubin NEG NEG Urine Urobilinogen NEG NEG Urine Leukocyte Esterase SMALL NEG Urine WBC (Auto) 10-30 0-5 /hpf Urine RBC (Auto) 0-4 0-4 /hpf Urine Hyaline Casts (Auto) 1-5 0-5 /lpf Urine Epithelial Cells (Auto) 10-20 0-5 /lpf Urine Bacteria (Auto) 4+ NEG Urine Renal Epithelial Cells 0-5 0-5 /lpf Microbiology Results 01/24/17 Urine Culture, Received Pending Diagnostic Radiology Patient Name: CJ RAMIREZ Unit Number: [id number] Dictated: 01/24/171011 Transcribed: 01/24/171011 Printed Date/Time: [~ rep prt dt]/[~ rep prt tm] [~ rep ct labl] - [~ rep ct ivnm] [facility] [place] [address] Dictated: 01/24/17 101 Transcribed: 01/24/171011 Printed Date/Time: [~ rep prt dt]/[~ rep prt tm] [~ rep ct labl] - [~ rep ct ivnm] Patient: CJ RAMIREZ Address1: [address] [place] [address] [address] [facility] Rec: [id number] Address2: Acct ID: [id number] [facility] Zip: [place] [address] Date: 1935 Sex: F Room/Bed: Ref Phy: Kennedy Ingram M.D. SC: CHRISTIE Att Phy: Report #: [id number] Milka Phy: Kennedy Ingram M.D. Test: HIP Admit Phy: Cook Vegetable: JOHNATHAN Interpreting Phy: Bennett Marie MD Diagnosis: FALL Ordering Phy: Maurice Rene MD Service Date: 01/24/17 Admit Date: 01/24/17 MNE: [id number] CONF: DICTATED BY: Bennett Marie MD]] CC: Maurice Rene, Kennedy Crespo M.D. Endcc: [~ rep ct add3]] RIGHT HIP UNILATERAL 2 VIEWS CLINICAL HISTORY: Right hip pain following fall. COMPARISON: Pelvis and right femur radiographs January 06, 2017. FINDINGS: Alignment of the right hip is anatomic. No acute fracture is identified. There is mild osteophytosis of the right hip. IMPRESSION: No acute fracture or dislocation of the right hip. Electronically signed by: Bennett Marie M.D. 01/24/2017 10:13 AM Dictated Date/Time: 01/24/2017 10:12 AM The status of this report is Signed. Draft = Not yet reviewed or approved by Radiologist. Signed = Reviewed and approved by Radiologist. <AttendingPhy></AttendingPhy> <FamilyPhy>Kennedy Ingram M.D.</FamilyPhy> < PrimaryPhy>Kennedy Ingram M.D.</PrimaryPhy> <UnitNumber>[id number]</UnitNumber > <VisitNumber>[id number]</VisitNumber> <PatientName>CJ RAMIREZ</ PatientName> <DateOfBirth>1935</DateOfBirth> <Location>C.EDB</Location> < ServiceDate>01/24/17</ServiceDate> <MNE>ESINDI</MNE> <OrderingPhy>Maurice Rene MD</OrderingPhy> <OrderingPhyMNE>f rep ord dr aquino</OrderingPhyMNE> < DictatingPhyMNE>f rep dict dr aquino</DictatingPhyMNE> <CCListMNE>f rep ct mne</ CCListMNE> <AdmittingPhyMNE>f pt admit dr aquino</AdmittingPhyMNE> <AttendingPhyMNE >f pt attend dr aquino</AttendingPhyMNE> <ConsultingPhyMNE>f pt consult dr aquino</ConsultingPhyMNE> <FamilyPhyMNE>f pt fam dr aquino</FamilyPhyMNE> <OtherPhyMNE>f pt other dr aquino</OtherPhyMNE> < PrimaryPhyMNE>f pt prim care dr aquino</PrimaryPhyMNE> <ReferringPhyMNE>f pt referring dr aquino</ReferringPhyMNE> Impression Assessment and Plan 81-year-old female presented again to the emergency department with a fall. No signs of syncope. It sounds like the patient had a minor back injury in October from a fall. She has been getting muscle spasms since, which have been related to all of her subsequent falls. She is however slightly confused which is different from her baseline. Urinalysis is concerning for UTI in the emergency Department Ambulatory dysfunction/frequent falls likely secondary to minor back injury -PT/OT evaluation was performed in the emergency department. Plan was for the patient to be discharged to [facility]. Unfortunately, insurance authorization was denied. -Admit to medical floor with plans of the patient being diagnosed to a SNF with PT/OT. -Voltaren gel to back prn -Tylenol 650 mg every 4 hours for pain Mild confusion/metabolic encephalopathy likely secondary to UTI -Send urine culture -Continue Rocephin 1 g IV daily Hypertension-BP slightly elevated because the patient did not take her blood pressure medications this morning -Continue diltiazem ER 2 or 40 mg daily, enalapril 10 mg twice daily Lower extremity edema -Continue Lasix 40 mg daily Hyperlipidemia -Continue simvastatin 10 mg daily GERD -Continue Zantac 150 mg twice daily DVT prophylaxis -Lovenox 40 mg subQ daily -TEDS, SCDs CODE STATUS -LEVEL I FULL CODE i personally examined pt and verified all ivey points w A [facility] back pain - in buttocks - shooting and abrupt - frequntly has been the cause of her falls notes in hindsight it all started after falling while using the sweeper - fell hard on her butt a few weeks ago ros otherwise negative except for as above o: vitals noted nad breathing unlabored no accessory muscles, no focal neuro deficits. R>L buttocks muscles in area of piriformis high tone/tender/ decreased ROM -- post-isometric relaxation muscle energy done both sides - improved ROM some, reproduced pain almost exactly - pt tolerated well a/p falls - for PT/OT then ?retry approval for rehab vs SNF for rehab back pain - related to piriformis / buttock muscle tightness. as above + voltaren gel somatic dysfunction pelvic region - OMT as above otherwise as above Level of Care Med/Surg Resuscitation Status FULL RESUSCITATION VTE Prophylaxis Risk Level: Low Given or contraindicated: Enoxaparin (Lovenox)SQ, T.E.D. Stockings, SCD's
[2017-01-24 19:35] VITALS: Ht 149.9 cm; Wt 103.0 kg
[2017-01-24] MEDS ORDERED: IV FLUIDS COMPLETED PRN (19:45)
[2017-01-24 20:07] VITALS: O2SAT 93
[2017-01-24 20:30] VITALS: BP 132/85; PULSE 78; TEMP 36.9; O2SAT 94
[2017-01-24] MEDS: ENALAPRIL MALEATE 10 MG TAB PO SCH (21:27)
[2017-01-24] MEDS: CYCLOBENZAPRINE HCL 10 MG TAB PO SCH (21:27)
[2017-01-24] MEDS: RANITIDINE HCL 150 MG TAB PO SCH (21:27)
[2017-01-24] MEDS: SIMVASTATIN 10 MG TAB PO SCH (21:27)
[2017-01-24] MEDS: ENOXAPARIN 40 MG/0.4 ML SYR SQ SCH (21:30)
[2017-01-24] MEDS: DICLOFENAC SOD 1% GEL 100 GM TUBE EXT SCH (21:31)
[2017-01-24 23:06] VITALS: BP 141/87; PULSE 79; TEMP 36.6; O2SAT 97
[2017-01-25 07:05] VITALS: BP 165/76; PULSE 95; TEMP 36.6; O2SAT 98
[2017-01-25] MEDS: DICLOFENAC SOD 1% GEL 100 GM TUBE EXT SCH ×4 (08:36→20:46)
[2017-01-25] MEDS: CYCLOBENZAPRINE HCL 10 MG TAB PO SCH ×3 (08:37→20:46)
[2017-01-25] MEDS: FUROSEMIDE 40 MG TAB PO SCH (08:37)
[2017-01-25] MEDS: DILTIAZEM HCL 240 MG CAPCR PO SCH (08:37)
[2017-01-25] MEDS: RANITIDINE HCL 150 MG TAB PO SCH ×2 (08:37→20:47)
[2017-01-25] MEDS: ENALAPRIL MALEATE 10 MG TAB PO SCH ×2 (08:38→20:47)
[2017-01-25] MEDS: ACETAMINOPHEN 325 MG TAB PO PRN (08:42)
[2017-01-25 11:57] VITALS: BP 128/83; PULSE 93; TEMP 36.3; O2SAT 94
[2017-01-25] MEDS ORDERED: BISACODYL 10 MG SUPP PR ONE (12:30)
--- NOTE | 2017-01-25 13:10 | Progress Note ---
Subjective Date of Service: January 25, 2017. Subjective Pt evaluation today including: conversation w/ patient, physical exam, lab review, review of inpatient medication list Pain: buttocks pain, better PO Intake: adequate Voiding: no voiding problems patient doing well, pleasant, oriented, admits to some pain but nothing else reviewed that we are going to work on getting her to rehab, need therapy to evaluate no UTI symptoms eating well c/o some constipation and wants a suppository Problem List Medical Problems: (1) Fall Status: Acute (2) Fall Status: Acute (3) Hip pain Status: Acute (4) Muscle spasm Status: Acute (5) UTI (urinary tract infection) Status: Acute (6) UTI (urinary tract infection) Status: Acute (7) Weakness Status: Acute Review of Systems Constitutional: + fatigue, + weakness Abdomen: + constipation Musculoskeletal: + joint pain (right hip and buttock) All Other Systems: Reviewed and Negative Medications Current Inpatient Medications Medications (Trade) Dose Ordered Sig/Stuart Route Start Time Stop Time Status Last Admin Dose Admin Ceftriaxone Sodium/Dextrose (Rocephin Inj/ Dextrose Add-[place] 50ML) 50 ml @ 100 mls/hr Q24H IV 01/25/17 14:00 01/30/17 13:59 Enoxaparin Sodium (Lovenox Inj) 40 mg QPM SQ 01/24/17 21:00 02/23/17 20:59 01/24/17 21:30 40 MG Acetaminophen (Tylenol Tab) 650 mg Q4H PRN PO 01/24/17 19:15 02/23/17 19:14 01/25/17 08:42 650 MG Ondansetron HCl (Zofran Inj) 4 mg Q6H PRN IV 01/24/17 19:15 02/23/17 19:14 Furosemide (Lasix Tab) 40 mg QAM PO 01/25/17 09:00 02/24/17 08:59 01/25/17 08:37 40 MG Cyclobenzaprine HCl (Flexeril Tab) 10 mg TID PO 01/24/17 21:00 02/23/17 20:59 01/25/17 08:37 10 MG Enalapril Maleate (Vasotec Tab) 10 mg BID PO 01/24/17 21:00 02/23/17 20:59 01/25/17 08:38 10 MG Ranitidine HCl (zANTac TAB) 150 mg BID PO 01/24/17 21:00 02/23/17 20:59 01/25/17 08:37 150 MG Simvastatin (Zocor Tab) 10 mg QPM PO 01/24/17 21:00 02/23/17 20:59 01/24/17 21:27 10 MG Diltiazem HCl (Cardizem Cd Cap) 240 mg DAILY PO 01/25/17 09:00 02/24/17 08:59 01/25/17 08:37 240 MG Miscellaneous (Iv Fluids Completed) 1 ea PRN PRN N/A 01/24/17 19:45 01/24/18 19:44 Diclofenac Sodium (Voltaren 1% Top Gel) 1 appln QID EXT 01/24/17 21:00 02/23/17 20:59 01/25/17 08:36 1 APPLN Docusate Sodium (coLACE CAP) 100 mg BID PO 01/25/17 21:00 02/24/17 20:59 Objective Vital Signs Date Time Temp Pulse Resp B/P Pulse Ox O2 Delivery O2 Flow Rate FiO2 01/25/17 11:57 36.3 93 18 128/83 94 Room Air 01/25/17 07:20 Room Air 01/25/17 07:05 36.6 95 18 165/76 98 Room Air 01/25/17 00:40 Room Air 01/24/17 23:06 36.6 79 18 141/87 97 Room Air 01/24/17 22:36 Room Air 01/24/17 20:30 36.9 78 16 132/85 94 Room Air 01/24/17 20:07 88 24 141/76 93 Room Air 01/24/17 19:35 Room Air 01/24/17 18:31 86 18 132/112 94 Room Air 01/24/17 16:00 67 20 112/69 93 Room Air 01/24/17 14:32 79 20 131/68 94 Room Air Physical Exam General Appearance: WD/WN, no apparent distress Eyes: normal inspection, EOMI, sclerae normal ENT: normal ENT inspection, hearing grossly normal, pharynx normal Neck: supple, no adenopathy, no JVD, trachea midline Respiratory/Chest: chest non-tender, lungs clear, normal breath sounds, no respiratory distress, no accessory muscle use Cardiovascular: regular rate, rhythm, no edema, no gallop, no JVD, no murmur Abdomen: normal bowel sounds, non tender, soft, no organomegaly Extremities: normal range of motion, normal inspection, no pedal edema, no calf tenderness, pelvis stable, + pertinent finding (right buttock tender) Neurologic/Psychiatric: er rn II-XII nml as tested, no motor/sensory deficits, alert, normal mood/affect, oriented x 3 Skin: normal color, warm/dry, no rash Lymphatic: no adenopathy Laboratory Results Date/Time Source Procedure Growth Status 01/24/17 12:30 Urine,Catheterized Urine Culture - Preliminary Staphylococcus Aureus Resulted Assessment and Plan 81-year-old female presented again to the emergency department with a fall. No signs of syncope. It sounds like the patient had a minor back injury in October from a fall. She has been getting muscle spasms since, which have been related to all of her subsequent falls. She is however slightly confused which is different from her baseline. Urinalysis is concerning for UTI in the emergency Department Ambulatory dysfunction/frequent falls likely secondary to minor back injury PT/OT evaluation was performed in the emergency department continue with therapy and apply for rehab to SNF Voltaren gel to back prn Tylenol 650 mg every 4 hours for pain Mild confusion/metabolic encephalopathy likely secondary to UTI: encephalopathy resolved currently urine culture growing staph aureus afebrile, normal WBC, no UTI symptoms, will continue Rocephin for now and follow up final sensitivities Constipation: colace BID and Dulcolax suppository PRN Hypertension- stable on home meds Continue diltiazem ER 2 or 40 mg daily, enalapril 10 mg twice daily Lower extremity edema Continue Lasix 40 mg daily Hyperlipidemia Continue simvastatin 10 mg daily GERD Continue Zantac 150 mg twice daily DVT prophylaxis -Lovenox 40 mg subQ daily -TEDAnuj, SCDs CODE STATUS -LEVEL I FULL CODE
[2017-01-25] MEDS ORDERED: CEFTRIAXONE SOD INJ 1 GM in DEXTROSE 5% ADD-VANTAGE 50ML 50 ML IV SCH (14:00)
[2017-01-25 15:41] VITALS: BP 104/63; PULSE 69; TEMP 36.3; O2SAT 93
[2017-01-25 20:44] VITALS: BP 139/83; PULSE 79
[2017-01-25] MEDS: ENOXAPARIN 40 MG/0.4 ML SYR SQ SCH (20:46)
[2017-01-25] MEDS: SIMVASTATIN 10 MG TAB PO SCH (20:47)
[2017-01-25] MEDS: DOCUSATE SODIUM 100 MG CAP PO SCH (20:47)
[2017-01-25 23:47] VITALS: BP 117/72; PULSE 71; TEMP 36.6; O2SAT 98
[2017-01-26] MEDS: ACETAMINOPHEN 325 MG TAB PO PRN ×2 (05:13→10:47)
[2017-01-26 07:35] VITALS: BP 125/76; PULSE 64; TEMP 36.5; O2SAT 95
[2017-01-26] MEDS: DICLOFENAC SOD 1% GEL 100 GM TUBE EXT SCH ×4 (08:11→21:21)
[2017-01-26] MEDS: DOCUSATE SODIUM 100 MG CAP PO SCH ×2 (08:11→21:22)
[2017-01-26] MEDS: ENALAPRIL MALEATE 10 MG TAB PO SCH ×2 (08:12→21:22)
[2017-01-26] MEDS: FUROSEMIDE 40 MG TAB PO SCH (08:12)
[2017-01-26] MEDS: RANITIDINE HCL 150 MG TAB PO SCH ×2 (08:13→21:22)
[2017-01-26] MEDS: DILTIAZEM HCL 240 MG CAPCR PO SCH (08:13)
[2017-01-26] MEDS: CYCLOBENZAPRINE HCL 10 MG TAB PO SCH ×3 (08:13→21:22)
[2017-01-26] MEDS ORDERED: DOXYCYCLINE HYCLATE 100 MG CAP PO ONE (09:03)
--- NOTE | 2017-01-26 12:11 | Progress Note ---
Subjective Date of Service: January 26, 2017. Subjective Pt evaluation today including: conversation w/ patient, physical exam, lab review, review of inpatient medication list Pain: mild right hip/buttock pain, better PO Intake: adequate Voiding: no voiding problems discussed MRSA UTI and plans for doxycycline no other issues, waiting for rehab Problem List Medical Problems: (1) Fall Status: Acute (2) Fall Status: Acute (3) Hip pain Status: Acute (4) Muscle spasm Status: Acute (5) UTI (urinary tract infection) Status: Acute (6) UTI (urinary tract infection) Status: Acute (7) Weakness Status: Acute Review of Systems Musculoskeletal: + joint pain (right hip and buttock) All Other Systems: Reviewed and Negative Medications Current Inpatient Medications Medications (Trade) Dose Ordered Sig/Stuart Route Start Time Stop Time Status Last Admin Dose Admin Enoxaparin Sodium (Lovenox Inj) 40 mg QPM SQ 01/24/17 21:00 02/23/17 20:59 01/25/17 20:46 40 MG Acetaminophen (Tylenol Tab) 650 mg Q4H PRN PO 01/24/17 19:15 02/23/17 19:14 01/26/17 10:47 650 MG Ondansetron HCl (Zofran Inj) 4 mg Q6H PRN IV 01/24/17 19:15 02/23/17 19:14 Furosemide (Lasix Tab) 40 mg QAM PO 01/25/17 09:00 02/24/17 08:59 01/26/17 08:12 40 MG Cyclobenzaprine HCl (Flexeril Tab) 10 mg TID PO 01/24/17 21:00 02/23/17 20:59 01/26/17 08:13 10 MG Enalapril Maleate (Vasotec Tab) 10 mg BID PO 01/24/17 21:00 02/23/17 20:59 01/26/17 08:12 10 MG Ranitidine HCl (zANTac TAB) 150 mg BID PO 01/24/17 21:00 02/23/17 20:59 01/26/17 08:13 150 MG Simvastatin (Zocor Tab) 10 mg QPM PO 01/24/17 21:00 02/23/17 20:59 01/25/17 20:47 10 MG Diltiazem HCl (Cardizem Cd Cap) 240 mg DAILY PO 01/25/17 09:00 02/24/17 08:59 01/26/17 08:13 240 MG Miscellaneous (Iv Fluids Completed) 1 ea PRN PRN N/A 01/24/17 19:45 01/24/18 19:44 Diclofenac Sodium (Voltaren 1% Top Gel) 1 appln QID EXT 01/24/17 21:00 02/23/17 20:59 01/26/17 08:11 1 APPLN Docusate Sodium (coLACE CAP) 100 mg BID PO 01/25/17 21:00 02/24/17 20:59 01/26/17 08:11 100 MG Doxycycline Hyclate (Vibramycin Cap) 100 mg BID PO 01/26/17 21:00 01/31/17 20:59 Objective Vital Signs Date Time Temp Pulse Resp B/P Pulse Ox O2 Delivery O2 Flow Rate FiO2 01/26/17 07:35 36.5 64 16 125/76 95 Room Air 01/26/17 01:05 Room Air 01/25/17 23:47 36.6 71 16 117/72 98 Room Air 01/25/17 20:44 79 139/83 01/25/17 15:55 Room Air 01/25/17 15:41 36.3 69 16 104/63 93 Room Air Physical Exam General Appearance: WD/WN, no apparent distress Eyes: normal inspection, EOMI, sclerae normal ENT: normal ENT inspection, hearing grossly normal, pharynx normal Neck: supple, no adenopathy, no JVD Respiratory/Chest: chest non-tender, lungs clear, normal breath sounds, no respiratory distress, no accessory muscle use Cardiovascular: regular rate, rhythm, no edema, no gallop, no JVD, no murmur Abdomen: normal bowel sounds, non tender, soft, no organomegaly Extremities: normal range of motion, non-tender, normal inspection, no pedal edema, no calf tenderness, pelvis stable Neurologic/Psychiatric: home day care provider II-XII nml as tested, no motor/sensory deficits, alert, normal mood/affect, oriented x 3 Skin: normal color, warm/dry, no rash Lymphatic: no adenopathy Assessment and Plan 81-year-old female presented again to the emergency department with a fall. No signs of syncope. It sounds like the patient had a minor back injury in October from a fall. She has been getting muscle spasms since, which have been related to all of her subsequent falls. She is however slightly confused which is different from her baseline. Urinalysis is concerning for UTI in the emergency Department Ambulatory dysfunction/frequent falls likely secondary to minor back injury PT/OT evaluation was performed in the emergency department continue with therapy and apply for rehab to [facility] on Friday Voltaren gel to back prn Tylenol 650 mg every 4 hours for pain Mild confusion/metabolic encephalopathy likely secondary to UTI: encephalopathy resolved currently urine culture growing MRSA, will treat with Doxycycline 100mg BID x 7 days, would use Bactrim but she has sulfa allergy afebrile, normal WBC, no UTI symptoms Constipation: colace BID and Dulcolax suppository PRN Hypertension- stable on home meds Continue diltiazem ER 240 mg daily, enalapril 10 mg twice daily Lower extremity edema Continue Lasix 40 mg daily Hyperlipidemia Continue simvastatin 10 mg daily GERD Continue Zantac 150 mg twice daily DVT prophylaxis -Lovenox 40 mg subQ daily -NIRMAL JAYs CODE STATUS -LEVEL I FULL CODE
[2017-01-26 14:53] VITALS: BP 114/79; PULSE 76; TEMP 36.5; O2SAT 95
[2017-01-26] MEDS: ENOXAPARIN 40 MG/0.4 ML SYR SQ SCH (21:22)
[2017-01-26] MEDS: SIMVASTATIN 10 MG TAB PO SCH (21:22)
[2017-01-26] MEDS: DOXYCYCLINE HYCLATE 100 MG CAP PO SCH (21:23)
[2017-01-26 21:24] VITALS: BP 141/84; PULSE 74
[2017-01-26 23:30] VITALS: BP 121/77; PULSE 78; TEMP 36.8; O2SAT 96
[2017-01-27 05:50] LABS: HEMATOCRIT 41.5 % (37-47); MEAN CELL VOLUME 90.2 fL (80-100); MEAN CORPUSCULAR HEMOGLOBIN 30.2 pg (25-34); MEAN CORPUSCULAR HGB CONC 33.5 g/dl (32-36); MEAN PLATELET VOLUME 10.3 fL (7.4-10.4); PLATELET COUNT 245 K/uL (130-400); WHITE BLOOD COUNT 6.56 K/uL (4.8-10.8)
[2017-01-27 06:18] LABS: CREATININE 0.97 mg/dl (0.60-1.20)
[2017-01-27] MEDS: DICLOFENAC SOD 1% GEL 100 GM TUBE EXT SCH ×2 (07:43→13:45)
[2017-01-27] MEDS: ACETAMINOPHEN 325 MG TAB PO PRN (07:43)
[2017-01-27] MEDS: CYCLOBENZAPRINE HCL 10 MG TAB PO SCH ×2 (07:44→13:45)
[2017-01-27] MEDS: DOXYCYCLINE HYCLATE 100 MG CAP PO SCH (07:44)
[2017-01-27] MEDS: RANITIDINE HCL 150 MG TAB PO SCH (07:44)
[2017-01-27] MEDS: DILTIAZEM HCL 240 MG CAPCR PO SCH (07:44)
[2017-01-27] MEDS: FUROSEMIDE 40 MG TAB PO SCH (07:44)
[2017-01-27 07:45] VITALS: BP 136/87; PULSE 67; TEMP 36.4; O2SAT 97
[2017-01-27] MEDS: ENALAPRIL MALEATE 10 MG TAB PO SCH (07:45)
[2017-01-27] MEDS: DOCUSATE SODIUM 100 MG CAP PO SCH (07:45)
[2017-01-27] MEDS ORDERED: VLTG EXT (12:16)
[2017-01-27] MEDS ORDERED: CLC100 PO (12:16)
[2017-01-27] MEDS ORDERED: DXY100 PO (12:16)
--- NOTE | 2017-01-27 12:28 | Discharge Instructions ---
Discharge Instructions Date of Service January 27, 2017. Admission Reason for Admission: Ambulatory Dysfunction Discharge Discharge Diagnosis / Problem: Ambulatory Dysfunction Discharge Goals Goal(s): Decrease discomfort, Improve function, Increase independence Activity Recommendations Activity Level: Assistance Required Therapies: Physical Therapy, Occupational Therapy . Additional Information Patient informed of condition: Yes Advance Directives: No DNR: No Level of Care: Skilled Communicable Disease: No Prognosis: Improving Instructions / Follow-Up Instructions / Follow-Up 81-year-old female presented to the emergency department with a fall. No signs of syncope. It sounds like the patient had a minor back injury in October from a fall. She has been getting muscle spasms since, which have been related to all of her subsequent falls. She is however slightly confused which is different from her baseline. Urinalysis is concerning for UTI in the ED Ambulatory Dysfunction/Frequent Falls likely Secondary to Minor Back Injury - PT/OT evaluations performed recommending inpatient rehab at [facility] - Continue Tylenol 650 mg Q4H PRN pain and Voltaren gel Metabolic Encephalopathy with Mild Confusion 2/2 MRSA UTI: Encephalopathy RESOLVED - Continue Doxycycline 100 mg BID x 7 days - today is DAY #10/29 -- Will need evening dose as morning dose was given this AM then resume twice a day until finished - Contact precautions Constipation: - Colace 100 mg BID HTN: Stable - Continue Diltiazem ER 240 mg daily and Enalapril 10 mg daily Lower Extremity Edema: Lasix 40 mg daily Hyperlipidemia - Simvastatin 10 mg daily GERD - Zantac 150 mg twice daily CODE STATUS -LEVEL I FULL CODE Current Hospital Diet Patient's current hospital diet: AHA Diet (Heart Healthy), Low Sodium Diet (2gm Na) Discharge Diet Recommended Diet: AHA Diet (Heart Healthy), Low Sodium Diet (2gm Na) Pending Studies Studies pending at discharge: no Laboratory Results Hemoglobin A1c Test 11/08/16 11:50 Range/Units Estimated Average Glucose 128 mg/dl Hemoglobin A1c 6.1 H 4.5-5.6 % Lipid Panel Test 11/08/16 11:50 Range/Units Triglycerides Level 93 0-150 mg/dl Cholesterol Level 186 0-200 mg/dl HDL Cholesterol 104 mg/dl Cholesterol/HDL Ratio 1.8 LDL Cholesterol, Calculated 63 mg/dl Medical Emergencies . Who to Call and When: Medical Emergencies: If at any time you feel your situation is an emergency, please call 911 immediately. . Non-Emergent Contact Non-Emergency issues call your: Primary Care Provider Call Non-Emergent contact if: you have a fever, your pain is concerning you, you have any medication questions . . "Provider Documentation" section prepared by Wendy Davidson. . Core Measure Problem Core Measures: None
[2017-01-27] MEDS ORDERED: TYL325X PO (12:29)
--- NOTE | 2017-01-27 13:44 | Discharge Summary ---
Discharge Summary Date of Service January 27, 2017. (Wedny Davidson PA-C) Discharge Summary Admission Date: January 24, 2017 at 19:20 Discharge Date: January 27, 2017 Discharge Disposition: long-term facility Principal Diagnosis: Ambulatory Dysfunction and UTI Problems/Secondary Diagnoses: 1. Hypertension 2. Lower extremity edema 3. Hyperlipidemia Immunizations: Have You Had Influenza Vaccine: N/A History of Tetanus Vaccine?: Unknown History of Pneumococcal: Yes History of Hepatitis B Vaccine: No Procedures: 1. RIGHT HIP UNILATERAL 2 VIEWS FINDINGS: Alignment of the right hip is anatomic. No acute fracture is identified. There is mild osteophytosis of the right hip. IMPRESSION: No acute fracture or dislocation of the right hip. 2. SINGLE VIEW PELVIS FINDINGS: 2 AP portable views of the pelvis are compared to study dated 01/22/2017. The examination is degraded by large body habitus. The skeletal structures are osteopenic. There is no radiographic evidence of fracture involving the hips or bony pelvis. Mild arthritic change is noted in the hips. Sclerotic change is seen involving the sacroiliac joints and pubic symphysis. Calcified phlebolith are observed in the pelvis. There is a nonobstructed abdominal bowel gas pattern. The overlying soft tissues are within normal limits. IMPRESSION: There is no radiographic evidence of fracture involving the hips or bony pelvis. (Wendy Davidson, AMENAC) Discharge Exam Review of Systems: Constitutional: No chills, No fever Eyes: No worsening of vision ENT: No nasal symptoms, No sore throat, No trouble swallowing Respiratory: No shortness of breath Cardiovascular: No chest pain Abdomen: No constipation, No diarrhea, No nausea, No pain, No vomiting Musculoskeletal: + problem reported (back pain), No calf pain Genitourinary - Female: No dysuria, No hematuria, No urinary frequency Neurologic: No balance problems, No vertigo Hematologic / Lymphatic: No abnormal bleeding/bruising Integumentary: No rash Physical Exam: General Appearance: WD/WN, no apparent distress Eyes: normal inspection ENT: hearing grossly normal Neck: supple, no JVD, trachea midline Respiratory/Chest: lungs clear, normal breath sounds, no respiratory distress, no accessory muscle use Cardiovascular: regular rate, rhythm, no gallop, no murmur Abdomen / GI: normal bowel sounds, non tender, soft Extremities: no calf tenderness, no pedal edema Neurologic/Psychiatric: alert, oriented x 3 Skin: normal color, warm/dry (Wendy Davidson PA-C) Hospital Course ADMISSION: This patient is a pleasant 81-year-old female that presented to the emergency department in the middle of the night last night with complaints of a fall. The patient lives by herself. She reportedly had a muscle spasm in her lower back that caused her to slumped to the ground. She denies any current pain. She was having some Right hip pain. Imaging in the emergency department was performed. No fractures noted per x-ray. The patient has had increasingly frequent falls at home. None have sounds syncopal in nature. She denies any dizziness or lightheadedness. No chest pain, heart palpitations or pressure. She reports eating and drinking normally. The patient initially had a fall this past October where she tripped over her vacuum shafting cleaner. She has had bilateral lower back pain since. She has seen her family doctor for this. She was diagnosed with sacroiliitis. She was put on muscle relaxants. I spoke with the son privately. He does note that the patient seems slightly confused today. This is unusual for her. HOSPITAL COURSE: Ms. Garcia was admitted for a mechanical fall but has had multiple falls due to back pain/spasms from a fall in October. Per son, she appeared slightly confused from baseline and she was noted to have a MRSA UTI. PT/OT evaluations performed that recommended inpatient rehab as patient lives alone. Pain responds to Tylenol and Voltaren gel. Mild metabolic encephalopathy due to UTI resolved. She was placed on Doxycycline 100 mg BID to complete a 7 day course. In regards to UTI, she is asymptomatic. She is hemodynamically stable and optimal for discharge to [facility] for SNF rehab. Total Time Spent: Greater than 30 minutes This includes examination of the patient, discharge planning, medication reconciliation, and communication with other providers. (Wendy Davidson PA-C) Discharge Instructions Please refer to the electronic Patient Visit Report (Discharge Instructions) for additional information. (Wendy Davidson PA-C) Additional Copies To Kennedy Ingram M.D. Reviewed: Pt Seen/Exam by Me, HO Notes, Prior Records, Labs, RAD (Pako Dennison M.D.) History Agree with PAC note. (Pako Dennison M.D.) General Appearance: WD/WN, no apparent distress Ears, Nose, Throat: normal ENT inspection Neck: non-tender, full range of motion Respiratory: chest non-tender, lungs clear Cardiovascular: normal peripheral pulses, regular rate, rhythm Gastrointestinal: normal bowel sounds, non tender Extremities: normal range of motion Neurologic/Psychiatric: mechanic's assistant II-XII nml as tested, no motor/sensory deficits (Pako Dennison M.D.) Assessment/Plan Agree with discharge assessment and plan. OK for dc to Rehab. Follow up with PCP in two weeks post dc from Rehab. (Pako Dennison M.D.)
[2017-01-27 13:56] VITALS: BP 136/87; PULSE 67; TEMP 36.4; O2SAT 97
== END 2017-01-27 14:19 ==
LOC: ENRESERVTM → ENRESERVDT → EDBD 08:03 → C.EDB 08:04 → UNDOADMOB 19:20 → C.3E 19:20 → C.MS2W 01-25 09:31 → C.3E 01-25 09:31
PROVIDERS: ADMIT Family Medicine; ATTEND Internal Medicine
DX: N39.0 Urinary tract infection, site not specified (principal); G93.41 Metabolic encephalopathy; R26.9 Unspecified abnormalities of gait and mobility; A49.02 Methicillin resistant Staphylococcus aureus infection, unspecified site; E78.5 Hyperlipidemia, unspecified; K21.9 Gastro-esophageal reflux disease without esophagitis; I10 Essential (primary) hypertension

== ENCOUNTER → 2017-02-05 | Outpatient (CLI) | payer BC ==
[~2017-02-05] MED LIST changes: +ACET325T96 PO; +BISA10SU38 PR; +CLC100 PO; +DXY100 PO; +MOMLX PO; +SODI1ENE PR; +TYL325X PO; +VLTG EXT
[2017-02-05 19:18] LABS: URINE APPEARANCE CLEAR (CLEAR); URINE BILIRUBIN NEG (NEG); URINE COLOR YELLOW; URINE NITRITE NEG (NEG); URINE SPECIFIC GRAVITY 1.023 (1.000-1.030); UROBILINOGEN NEG (NEG)
[2017-02-05 19:22] LABS: MANUAL MICROSCOPIC REQUIRED? NO; REVIEW REQ? NO
== END ==
LOC: C.LABCC 17:32
PROVIDERS: ATTEND Internal Medicine
DX: R41.82 Altered mental status, unspecified (principal); N39.0 Urinary tract infection, site not specified

== ENCOUNTER → 2017-02-19 | Outpatient (CLI) | payer BC ==
[2017-02-19 18:03] LABS: BASO % 0.3 %; BASO ABS # 0.02 K/uL (0-0.2); COMPLETE YES; EOS % 1.4 %; HEMATOCRIT 48.3 % (37-47); IG% 0.1 %; LYMPH ABS # 0.55 K/uL (1.2-3.4); MEAN CELL VOLUME 90.6 fL (80-100); MEAN CORPUSCULAR HEMOGLOBIN 31.1 pg (25-34); MEAN CORPUSCULAR HGB CONC 34.4 g/dl (32-36); MEAN PLATELET VOLUME 11.5 fL (7.4-10.4); MONO % 14.2 %; PLATELET COUNT 216 K/uL (130-400); RED BLOOD COUNT 5.33 M/uL (4.2-5.4)
[2017-02-19 18:16] LABS: URINE APPEARANCE CLEAR (CLEAR); URINE BILIRUBIN NEG (NEG); URINE COLOR DK YELLOW; URINE EPITHELIAL CELL AUTO >30 /lpf (0-5); URINE NITRITE NEG (NEG); URINE PH 5.5 (4.5-7.5); URINE SPECIFIC GRAVITY 1.024 (1.000-1.030); UROBILINOGEN NEG (NEG)
[2017-02-19 18:22] LABS: ALT/SGPT 34 U/L (12-78); AST/SGOT 35 U/L (15-37); BLOOD UREA NITROGEN 29 mg/dl (7-18); CALCIUM 9.1 mg/dl (8.5-10.1); CARBON DIOXIDE 26 mmol/L (21-32); CHLORIDE 109 mmol/L (98-107); GLUCOSE 127 mg/dl (70-99); POTASSIUM 3.9 mmol/L (3.5-5.1); SODIUM 146 mmol/L (136-145)
[2017-02-19 18:22] LABS: MANUAL MICROSCOPIC REQUIRED? NO; REVIEW REQ? YES
[2017-02-19 18:34] LABS: ALB/GLOB RATIO 0.8 (0.9-2); ALKALINE PHOSPHATASE 111 U/L (45-117)
== END | disposition home or self-care (01) ==
LOC: C.LABCC 13:30
PROVIDERS: ATTEND Internal Medicine
DX: R41.82 Altered mental status, unspecified (principal)

== ENCOUNTER 2017-02-21 11:27 | Inpatient (IN) | payer BC, OTHER ==
[~2017-02-21] VITALS: Ht 149.9 cm; Wt 97.5 kg
[2017-02-21] MEDS: SODIUM CHLORIDE 0.9% 1000ML 1,000 ML IV SCH ×2 (06:20→17:03)
[~2017-02-21 11:27] MED LIST changes: -ACET325T96 PO; -BISA10SU38 PR; -CYCL10TA6 PO; -MOMLX PO; -SODI1ENE PR
[2017-02-21] MEDS ORDERED: PIPERACILLIN/TAZOBACTAM 4.5 GM/100ML D5W IV STA (11:46)
[2017-02-21] MEDS ORDERED: SODIUM CHLORIDE 0.9% 1000ML 2,000 ML IV STA (11:46)
[2017-02-21] MEDS ORDERED: ACETAMINOPHEN 650 MG SUPP PR STA (11:47)
[2017-02-21] MEDS ORDERED: CYCL10TA6 PO (11:58)
[2017-02-21] MEDS ORDERED: ACET325T96 PO (11:58)
[2017-02-21] MEDS ORDERED: MOMLX PO (12:00)
[2017-02-21] MEDS ORDERED: SODI1ENE PR (12:00)
[2017-02-21] MEDS ORDERED: BISA10SU38 PR (12:00)
--- NOTE | 2017-02-21 12:02 | DIAGNOSTIC IMAGING REPORT ---
CHEST ONE VIEW PORTABLE CLINICAL HISTORY: fever COMPARISON STUDY: 01/22/2017 FINDINGS: The study is limited from a technical standpoint. The heart is mildly enlarged. Aortic tortuosity. There is no focal pulmonary consolidation. There is no failure. There are no significant pleural effusions.[ IMPRESSION: Technically limited study. No acute findings. Electronically signed by: Rakan Daigle M.D. 02/21/2017 12:01 PM Dictated Date/Time: 02/21/2017 12:00 PM
[2017-02-21 12:23] LABS: BASO % 0.5 %; BASO ABS # 0.04 K/uL (0-0.2); COMPLETE YES; EOS % 0.5 %; HEMATOCRIT 51.1 % (37-47); IG% 0.4 %; LYMPH % 14.7 %; MEAN CELL VOLUME 90.1 fL (80-100); MEAN CORPUSCULAR HGB CONC 33.3 g/dl (32-36); MEAN PLATELET VOLUME 12.4 fL (7.4-10.4); MONO % 10.8 %; NEUT % 73.1 %; PLATELET COUNT 150 K/uL (130-400); RED BLOOD COUNT 5.67 M/uL (4.2-5.4); WHITE BLOOD COUNT 8.18 K/uL (4.8-10.8)
[2017-02-21 12:27] LABS: ISTAT CREATININE 1.4 mg/dl (0.6-1.3); ISTAT IONIZED CALCIUM 1.11 mmol/l (1.12-1.32)
[2017-02-21 12:55] LABS: ALKALINE PHOSPHATASE 97 U/L (45-117); ALT/SGPT 38 U/L (12-78); BUN/CREATININE RATIO 32.4 (10-20); CARBON DIOXIDE 24 mmol/L (21-32); CHLORIDE 117 mmol/L (98-107); GLUCOSE 131 mg/dl (70-99); MAGNESIUM 3.2 mg/dl (1.8-2.4)
[2017-02-21 13:01] LABS: POTASSIUM 3.9 mmol/L (3.5-5.1); SODIUM 152 mmol/L (136-145)
[2017-02-21 13:10] LABS: AST/SGOT 28 U/L (15-37)
[2017-02-21] MEDS ORDERED: ALUMINUM/MAGNESIUM/SIMETH (MAALOX MAX) 30 ML UDC PO PRN (13:15)
[2017-02-21] MEDS ORDERED: MAGNESIUM HYDROXIDE SUSP 30 ML UDC PO PRN (13:15)
[2017-02-21] MEDS ORDERED: LEVOFLOXACIN / D5W 500 MG in PREMIXED IN D5W 100 ML IV SCH (13:15)
[2017-02-21] MEDS ORDERED: VANCOMYCIN INJ 1,000 MG in SODIUM CHLORIDE 0.9% 250ML 250 ML IV SCH (13:15)
[2017-02-21] MEDS ORDERED: ACETAMINOPHEN IV 650 MG in EMPTY BAG 0 ML IV PRN (13:15)
[2017-02-21] MEDS ORDERED: ONDANSETRON INJ 2 MG/ML 2 ML VIAL IV PRN (13:15)
[2017-02-21] MEDS ORDERED: POLYETHYLENE (MIRALAX) 17 GM PACK PO PRN (13:15)
[2017-02-21 13:22] LABS: INR 1.2 (0.9-1.1); PROTHROMBIN TIME (PATIENT) 12.9 SECONDS (9.0-12.0)
[2017-02-21 13:23] LABS: BLOOD UREA NITROGEN 45 mg/dl (7-18)
[2017-02-21 13:25] LABS: CALCIUM 9.1 mg/dl (8.5-10.1)
--- NOTE | 2017-02-21 13:44 | History and Physical ---
History & Physical Date & Time of Service: Feb 21, 2017 at 13:31 Chief Complaint: AMS Primary Care Physician: Braxton Cardoza History of Present Illness Source: clinic records, hospital records, other (ED staff) This patient is an 81-year-old female that is a resident of [facility] that was sent to the emergency department for evaluation of fever and altered mental status. The patient was reportedly found to be altered this afternoon. She typically is able to hold somewhat of a coherent conversation and ambulate. She was not responding to staff. History of present illness is limited as the patient cannot contribute. The patient does have a history of frequent falls and UTIs. She was sent to [facility] after her last admission to the hospital. Past Medical/Surgical History Hypertension Frequent falls Dementia Chronic lower extremity edema History of MRSA UTI Status post appendectomy, breast lumpectomy, total knee replacement, oophorectomy and tubal ligation Family History No pertinent family history Diabetes, breast cancer, colon cancer, ovarian cancer Social History Smoking Status: Unknown if Ever Smoked Drug Use: none Marital Status: Housing status: skilled nursing ([facility]) Occupational Status: retired Immunizations History of Influenza Vaccine: N/A History of Tetanus Vaccine?: Unknown History of Pneumococcal: Yes History of Hepatitis B Vaccine: No Multi-Drug Resistant Organisms History of MDRO: Yes Type of MDRO: MRSA Allergies Coded Allergies: Celecoxib (Verified Allergy, Unknown, RASH, BUT TAKEN IBUPROFEN WITHOUT PROBLEM, 01/24/17) Sulfa Drugs (Verified Allergy, Unknown, FROM CELEBREX ALLERGY?, 01/24/17) Home Medications Scheduled Cyclobenzaprine Hcl (Flexeril), 10 MG PO TID Diltiazem HCl Coated Beads (Diltiazem HCl ER), 240 MG PO QAM Enalapril (Vasotec), 10 MG PO BID Furosemide (Lasix), 20 MG PO QAM Ranitidine (Zantac), 150 MG PO BID Simvastatin (Simvastatin), 10 MG PO QPM Scheduled PRN Acetaminophen Tab (Tylenol), 650 MG PO Q6 PRN for Pain or Fever Bisacodyl (Dulcolax), 1 SUPP PA UD PRN for BOWEL PROTOCOL Magnesium Hydroxide (Milk of Magnesia), 30 ML PO UD PRN for BOWEL PROTOCOL Sodium Phosphates (Fleet Enema Six Pack), 1 DOSE PA UD PRN for BOWEL PROTOCOL Review of Systems Unable to perform secondary to mental state Physical Exam Vital Signs Date Time Temp Pulse Resp B/P (MAP) Pulse Ox O2 Delivery O2 Flow Rate FiO2 02/21/17 12:54 106 24 106/72 90 Room Air 02/21/17 12:02 122 02/21/17 11:48 39.4 02/21/17 11:36 96 Room Air 02/21/17 11:36 122 24 122/108 96 Room Air General Appearance: + pertinent finding (patient acutely ill in appearance. Unresponsive to verbal stimuli. Grimaces to painful stimuli.) Head: normocephalic Eyes: PERRL ENT: + pertinent finding (oral mucosa dry) Neck: no JVD Respiratory/Chest: lungs clear Cardiovascular: no murmur, + tachycardia Abdomen/GI: normal bowel sounds, non tender (no notable tenderness), soft, + pertinent finding (reducible umbilical hernia noted.) Extremities/Musculoskelatal: no calf tenderness, no pedal edema, + pertinent finding (no erythema noted.) Neurologic/Psych: + pertinent finding (responsive only to painful stimuli. She opens her eyes. Nonverbal. Does not follow commands.) Skin: warm/dry Diagnostics Laboratory Results Results Past 24 Hours Test 02/21/17 11:33 02/21/17 11:34 02/21/17 11:35 02/21/17 12:09 Range/Units Bedside Glucose 124 70-90 mg/dl White Blood Count 8.18 4.8-10.8 K/uL Red Blood Count 5.67 4.2-5.4 M/uL Hemoglobin 17.0 12.0-16.0 g/dL Hematocrit 51.1 37-47 % Mean Corpuscular Volume 90.1 80-100 fL Mean Corpuscular Hemoglobin 30.0 25-34 pg Mean Corpuscular Hemoglobin Concent 33.3 32-36 g/dl Platelet Count 150 130-400 K/uL Mean Platelet Volume 12.4 7.4-10.4 fL Neutrophils (%) (Auto) 73.1 % Lymphocytes (%) (Auto) 14.7 % Monocytes (%) (Auto) 10.8 % Eosinophils (%) (Auto) 0.5 % Basophils (%) (Auto) 0.5 % Neutrophils # (Auto) 5.99 1.4-6.5 K/uL Lymphocytes # (Auto) 1.20 1.2-3.4 K/uL Monocytes # (Auto) 0.88 0.11-0.59 K/uL Eosinophils # (Auto) 0.04 0-0.5 K/uL Basophils # (Auto) 0.04 0-0.2 K/uL RDW Standard Deviation 47.5 36.4-46.3 fL RDW Coefficient of Variation 14.3 11.5-14.5 % Immature Granulocyte % (Auto) 0.4 % Immature Granulocyte # (Auto) 0.03 0.00-0.02 K/uL Sodium Level 152 136-145 mmol/L Potassium Level 3.9 3.5-5.1 mmol/L Chloride Level 117 98-107 mmol/L Carbon Dioxide Level 24 21-32 mmol/L Anion Gap 11.0 3-11 mmol/L Blood Urea Nitrogen 45 7-18 mg/dl Creatinine 1.40 0.60-1.20 mg/dl Estimated GFR () 40.7 Estimated GFR (Non- 35.1 BUN/Creatinine Ratio 32.4 10-20 Random Glucose 131 70-99 mg/dl Calcium Level 9.1 8.5-10.1 mg/dl Magnesium Level 3.2 1.8-2.4 mg/dl Total Bilirubin 0.7 0.2-1 mg/dl Direct Bilirubin 0.2 0-0.2 mg/dl Aspartate Amino Transf (AST/SGOT) 28 15-37 U/L Alanine Aminotransferase (ALT/SGPT) 38 12-78 U/L Alkaline Phosphatase 97 45-117 U/L Total Creatine Kinase 50 26-192 U/L Creatine Kinase MB < 0.5 0.5-3.6 ng/ml Creatine Kinase MB Ratio 0-3.0 Troponin I 0.031 0-0.045 ng/ml Total Protein 7.5 6.4-8.2 gm/dl Albumin 3.2 3.4-5.0 gm/dl Bedside Lactic Acid Venous 1.43 0.90-1.70 mmol/L Test 02/21/17 12:14 02/21/17 13:00 Range/Units Bedside Hemoglobin 17.0 12.0-16.0 g/dl Bedside Hematocrit 50 37-47 % Bedside Sodium 149 135-144 mEq/L Bedside Potassium 4.6 3.3-5.0 mEq/L Bedside Chloride 116 101-112 mEq/L Bedside Total CO2 23 24-31 mEq/l Anion Gap 16.0 16-25 mmol/L Bedside Blood Urea Nitrogen 56 7-18 mg/dl Bedside Creatinine 1.4 0.6-1.3 mg/dl Bedside Glucose (other) 142 70-99 mg/dl Bedside Ionized Calcium (Michael) 1.11 1.12-1.32 mmol/l Prothrombin Time 12.9 9.0-12.0 SECONDS Prothromb Time International Ratio 1.2 0.9-1.1 Microbiology Results 02/21/17 Blood Culture, Received Pending 02/21/17 Blood Culture, Received Pending Diagnostic Radiology Patient Name: CJ RAMIREZ Unit Number: [id number] Dictated: 02/21/17 1200 Transcribed: 02/21/17 1200 ARG Printed Date/Time: [~ rep prt dt]/[~ rep prt tm] [~ rep ct labl] - [~ rep ct ivnm] [facility] [place] [address] Dictated: 02/21/17 1200 Transcribed: 02/21/17 1200 ARG Printed Date/Time: [~ rep prt dt]/[~ rep prt tm] [~ rep ct labl] - [~ rep ct ivnm] Patient: CJ RAMIREZ Address1: [address] [place] [address] Rec: [id number] Address2: Acct ID: [id number] [facility] Zip: [place] [address] Date: 1935 Sex: F Room/Bed: Ref Phy: Ch[place], Crest SC: FIDEL Att Phy: Report #: [id number] Milka Phy: [place], Crest Test: CXR1P Admit Phy: Energy Rater: CHIRAG Interpreting Phy: Rakan Daigle M.D. Diagnosis: AMS Ordering Phy: Archie Sterling DO Service Date: 02/21/17 Admit Date: 02/21/17 MNE: [id number] CONF: DICTATED BY: Rakan Daigle M.D.]] CC: Archie Sterling DO [place], Braxton Endcc: [~ rep ct add3]] CHEST ONE VIEW PORTABLE CLINICAL HISTORY: fever COMPARISON STUDY: 01/22/2017 FINDINGS: The study is limited from a technical standpoint. The heart is mildly enlarged. Aortic tortuosity. There is no focal pulmonary consolidation. There is no failure. There are no significant pleural effusions.[ IMPRESSION: Technically limited study. No acute findings. Electronically signed by: Rakan Daigle M.D. 02/21/2017 12:01 PM Dictated Date/Time: 02/21/2017 12:00 PM The status of this report is Signed. Draft = Not yet reviewed or approved by Radiologist. Signed = Reviewed and approved by Radiologist. <AttendingPhy></AttendingPhy> <FamilyPhy>Chilton, [place]ah</FamilyPhy> <PrimaryPhy> Chilton, [place]</PrimaryPhy> <UnitNumber>[id number]</UnitNumber> <VisitNumber> [id number]</VisitNumber> <PatientName>RAMIREZ,CJ L</PatientName> < DateOfBirth>1935</DateOfBirth> <Location>[facility]</Location> <ServiceDate>11/08</ServiceDate> <MNE>ESINDI</MNE> <OrderingPhy>Archie Sterling DO</ OrderingPhy> <OrderingPhyMNE>f rep ord dr aquino</OrderingPhyMNE> <DictatingPhyMNE> f rep dict dr aquino</DictatingPhyMNE> <CCListMNE>f rep ct jabarie</CCListMNE> < AdmittingPhyMNE>f pt admit dr aquino</AdmittingPhyMNE> <AttendingPhyMNE>f pt attend dr aquino</AttendingPhyMNE> <ConsultingPhyMNE>f pt consult dr aquino</ConsultingPhyMNE> <FamilyPhyMNE>f pt fam dr aquino</FamilyPhyMNE> <OtherPhyMNE>f pt other dr aquino</OtherPhyMNE> < PrimaryPhyMNE>f pt prim care dr aquino</PrimaryPhyMNE> <ReferringPhyMNE>f pt referring dr aquino</ReferringPhyMNE> EKG Sinus tachycardia 124 bpm Q waves noted in the anterior, inferior and lateral leads Slight depression noted in the lateral leads--> slightly worse when compared to previous EKG Impression Assessment and Plan 81-year-old female sent emergency department for evaluation of altered mental status and fever. Metabolic encephalopathy/sepsis-source at this point is unknown, however I would suspect urine. Urine cultures reviewed. + MRSA and strep -Admit to telemetry -Broad-spectrum antibiotics with vanc, levaquin -cont IVF NS @ 100 cc/hr -Repeat lactic acid -Follow CBC -palomo culture ? new ST depressions on EKG-->probably secondary to demand -trend enzymes -daily EKG Acute on chronic renal insufficiency Baseline creatinine~ 1-1.0-probably secondary to sepsis -IVF as noted above -Follow PRP HTN -Hold home dose of enalapril 10 mg BID -Continue diltiazem ER 240 mg in the morning if BP is stable Hyperlipidemia -Continue simvastatin 10 mg 1 patient is able to take po GERD -Pantoprazole 40 mg daily while in-house DVT prophylaxis -Heparin 5000 u subQ BID -TEDS, SCDs CODE STATUS -LEVEL V DO NO RESUSCITATE I agree with PA assessment and plan and have seen and examined pt myself Pt resting comfortably in bed Unable to give hx due to metabolic encephalopathy likely from sepsis Febrile in ER Labs and imaging reviewed Cover for MRSA as grew out in urine on last admission Agree with antibx Lungs dec BS bilateral IVF for SHEILA Pt is DNR Level of Care Telemetry Resuscitation Status DO NOT RESUSCITATE VTE Prophylaxis VTE Risk Assessment Done? Y/N: Yes Risk Level: Low Given or contraindicated: Unfractionated heparin SQ, T.E.D. Stockings, SCD's
[2017-02-21] MEDS ORDERED: VANCOMYCIN CONSULT ACTIVE PRN (14:45)
[2017-02-21] MEDS ORDERED: VANCOMYCIN INJ 2,000 MG in SODIUM CHLORIDE 0.9% 500ML 500 ML IV ONE (15:00)
[2017-02-21 15:14] LABS: URINE APPEARANCE TURBID (CLEAR); URINE COLOR DK YELLOW; URINE EPITHELIAL CELL AUTO >30 /lpf (0-5); URINE NITRITE NEG (NEG); URINE SPECIFIC GRAVITY 1.028 (1.000-1.030); UROBILINOGEN NEG (NEG); ZZURINE CULT IF INDIC CATH YES
--- NOTE | 2017-02-21 15:25 | EMERGENCY ROOM VISIT NOTE ---
History Report prepared by Felipe: Kj Ron Under the Supervision of: Dr. Archie Sterling D.O. First contact with patient: 11:34 Chief Complaint: ALTERED MENTAL STATUS Stated Complaint: AMS History of Present Illness The patient is a 81 year old female who presents to the Emergency Room with an altered mental status. Per nursing staff, the patient was found to be febrile at her retirement. They note that the patient is DNR. They state that the patient is typically confused, but responsive and moves around independently. Nursing staff denies any cough, UTI, or SOB. HPI limited secondary to altered mental status. Source of History: nursing staff History Limited By: AMS Quality: other (altered mental status) Associated Symptoms: + fevers, No cough, No SOB Review of Systems ROS unobtainable secondary to altered mental status. Past Medical & Surgical Medical Problems: (1) Ambulatory dysfunction (2) No pertinent past medical history (3) Sepsis (4) UTI (urinary tract infection) Family History No pertinent family history Social History Smoking Status: Never Smoker Alcohol Use: none Drug Use: none Marital Status: Housing Status: lives alone Occupation Status: retired Current/Historical Medications Scheduled Cyclobenzaprine Hcl (Flexeril), 10 MG PO TID Diltiazem HCl Coated Beads (Diltiazem HCl ER), 240 MG PO QAM Enalapril (Vasotec), 10 MG PO BID Furosemide (Lasix), 20 MG PO QAM Ranitidine (Zantac), 150 MG PO BID Simvastatin (Simvastatin), 10 MG PO QPM Scheduled PRN Acetaminophen Tab (Tylenol), 650 MG PO Q6 PRN for Pain or Fever Bisacodyl (Dulcolax), 1 SUPP ME UD PRN for BOWEL PROTOCOL Magnesium Hydroxide (Milk of Magnesia), 30 ML PO UD PRN for BOWEL PROTOCOL Sodium Phosphates (Fleet Enema Six Pack), 1 DOSE ME UD PRN for BOWEL PROTOCOL Allergies Coded Allergies: Celecoxib (Verified Allergy, Unknown, RASH, BUT TAKEN IBUPROFEN WITHOUT PROBLEM, 01/24/17) Sulfa Drugs (Verified Allergy, Unknown, FROM CELEBREX ALLERGY?, 01/24/17) Physical Exam Vital Signs Date Time Temp Pulse Resp B/P (MAP) Pulse Ox O2 Delivery O2 Flow Rate FiO2 02/21/17 14:06 96 Nasal Cannula 2.0 02/21/17 14:05 105 24 104/83 85 Room Air 02/21/17 13:58 105 02/21/17 12:54 106 24 106/72 90 Room Air 02/21/17 12:02 122 02/21/17 11:48 39.4 02/21/17 11:36 96 Room Air 02/21/17 11:36 122 24 122/108 96 Room Air Physical Exam GENERAL: Morbidly obese, sitting up in bed, ill-appearing EYE EXAM: Opens eyes to voice and painful stimuli, PERRL OROPHARYNX: no exudate, no erythema, lips, buccal mucosa, and tongue normal and mucous membranes are dry NECK: supple, no nuchal rigidity, no adenopathy, non-tender LUNGS: Diminished bilaterally. Normal chest wall mechanics HEART: Tachycardic with no murmurs, S1 normal and S2 normal ABDOMEN: abdomen soft, non-tender, normo-active bowel sounds, no masses, no rebound or guarding. BACK: Back is symmetrical on inspection and there is no deformity, no midline tenderness, no CVA tenderness. SKIN: no rashes and no bruising UPPER EXTREMITIES: upper extremities are grossly normal. LOWER EXTREMITIES: Bilateral pitting edema. NEURO EXAM: Intermittently moans to painful stimuli. Opens eyes to voice or painful stimuli. Withdraws all extremities to pain. Medical Decision & Procedures ER Provider Diagnostic Interpretation: X-ray interpreted by me and the radiologist. CHEST ONE VIEW PORTABLE FINDINGS: The study is limited from a technical standpoint. The heart is mildly enlarged. Aortic tortuosity. There is no focal pulmonary consolidation. There is no failure. There are no significant pleural effusions.[ IMPRESSION: Technically limited study. No acute findings. Electronically signed by: Rakan Daigel M.D. Laboratory Results 02/21/17 11:35 Red Blood Count 5.67, Mean Corpuscular Volume 90.1, Mean Corpuscular Hemoglobin 30.0, Mean Corpuscular Hemoglobin Concent 33.3, Mean Platelet Volume 12.4, Neutrophils (%) (Auto) 73.1, Lymphocytes (%) (Auto) 14.7, Monocytes (%) (Auto) 10.8, Eosinophils (%) (Auto) 0.5, Basophils (%) (Auto) 0.5, Neutrophils # (Auto ) 5.99, Lymphocytes # (Auto) 1.20, Monocytes # (Auto) 0.88, Eosinophils # (Auto ) 0.04, Basophils # (Auto) 0.04 02/21/17 11:35 Test 02/21/17 11:33 02/21/17 11:35 02/21/17 12:09 02/21/17 12:14 Bedside Glucose 124 mg/dl (70-90) White Blood Count 8.18 K/uL (4.8-10.8) Red Blood Count 5.67 M/uL (4.2-5.4) Hemoglobin 17.0 g/dL (12.0-16.0) Hematocrit 51.1 % (37-47) Mean Corpuscular Volume 90.1 fL (80-100) Mean Corpuscular Hemoglobin 30.0 pg (25-34) Mean Corpuscular Hemoglobin Concent 33.3 g/dl (32-36) Platelet Count 150 K/uL (130-400) Mean Platelet Volume 12.4 fL (7.4-10.4) Neutrophils (%) (Auto) 73.1 % Lymphocytes (%) (Auto) 14.7 % Monocytes (%) (Auto) 10.8 % Eosinophils (%) (Auto) 0.5 % Basophils (%) (Auto) 0.5 % Neutrophils # (Auto) 5.99 K/uL (1.4-6.5) Lymphocytes # (Auto) 1.20 K/uL (1.2-3.4) Monocytes # (Auto) 0.88 K/uL (0.11-0.59) Eosinophils # (Auto) 0.04 K/uL (0-0.5) Basophils # (Auto) 0.04 K/uL (0-0.2) RDW Standard Deviation 47.5 fL (36.4-46.3) RDW Coefficient of Variation 14.3 % (11.5-14.5) Immature Granulocyte % (Auto) 0.4 % Immature Granulocyte # (Auto) 0.03 K/uL (0.00-0.02) Estimated GFR () 40.7 Estimated GFR (Non- 35.1 BUN/Creatinine Ratio 32.4 (10-20) Calcium Level 9.1 mg/dl (8.5-10.1) Magnesium Level 3.2 mg/dl (1.8-2.4) Total Bilirubin 0.7 mg/dl (0.2-1) Direct Bilirubin 0.2 mg/dl (0-0.2) Aspartate Amino Transf (AST/SGOT) 28 U/L (15-37) Alanine Aminotransferase (ALT/SGPT) 38 U/L (12-78) Alkaline Phosphatase 97 U/L (45-117) Total Creatine Kinase 50 U/L (26-192) Creatine Kinase MB < 0.5 ng/ml (0.5-3.6) Creatine Kinase MB Ratio (0-3.0) Troponin I 0.031 ng/ml (0-0.045) Total Protein 7.5 gm/dl (6.4-8.2) Albumin 3.2 gm/dl (3.4-5.0) Bedside Lactic Acid Venous 1.43 mmol/L (0.90-1.70) Bedside Hemoglobin 17.0 g/dl (12.0-16.0) Bedside Hematocrit 50 % (37-47) Bedside Sodium 149 mEq/L (135-144) Bedside Potassium 4.6 mEq/L (3.3-5.0) Bedside Chloride 116 mEq/L (101-112) Bedside Total CO2 23 mEq/l (24-31) Anion Gap 16.0 mmol/L (16-25) Bedside Blood Urea Nitrogen 56 mg/dl (7-18) Bedside Creatinine 1.4 mg/dl (0.6-1.3) Bedside Glucose (other) 142 mg/dl (70-99) Bedside Ionized Calcium (Michael) 1.11 mmol/l (1.12-1.32) Test 02/21/17 13:00 02/21/17 14:35 Prothrombin Time 12.9 SECONDS (9.0-12.0) Prothromb Time International Ratio 1.2 (0.9-1.1) Laboratory results per my review. Medications Administered Medications (Trade) Dose Ordered Sig/Stuart Route Start Time Stop Time Status Last Admin Dose Admin Sodium Chloride 2,000 ml @ 999 mls/hr Q2H1M STAT IV 02/21/17 11:46 02/21/17 13:46 DC 02/21/17 12:34 999 MLS/HR Piperacillin Sod/ Tazobactam Sod (Zosyn Iv) 4.5 gm NOW STAT IV 02/21/17 11:46 02/21/17 11:47 DC 02/21/17 12:34 4.5 GM Acetaminophen (Tylenol Supp) 650 mg NOW STAT ME 02/21/17 11:47 02/21/17 11:48 DC 02/21/17 12:35 650 MG Vancomycin HCl 2000 mg/Sodium Chloride 540 ml @ 200 mls/hr TODAY@1500 ONCE IV 02/21/17 15:00 02/21/17 17:41 02/21/17 14:46 200 MLS/HR ECG Indication: altered mental status Rate (beats per minute): 124 Rhythm: sinus tachycardia Findings: Q waves (Anterior, lateral and inferior leads), left axis deviation Comparison ECG Date: January 24, 2017 Change: Q waves are new. ED Course ED COURSE: Vital signs were reviewed and showed tachycardia, tachypnea and a fever The patients medical record was reviewed The above diagnostic studies were performed and reviewed. ED treatments and interventions as stated above. 1141: The patient was evaluated in room A10. A complete history and physical examination was performed. 1146: Ordered Zosyn 4.5 gm IV, Sodium Chloride 2000 ml @ 999 mls/hr IV, Tylenol Supp 650 mg ME. 1322: Upon reevaluation, the patient is resting. Her heart rate has decreased to 100 bpm. Based on the patients age, coexisting illnesses, exam and lab findings the decision to treat as an inpatient was made. The patient remained stable while under my care. The patient will be evaluated for further management. Medical Decision Differential diagnosis includes etiologies such as sepsis, UTI, pneumonia, metabolic, electrolyte abnormalities, cardiac sources, intracerebral event, toxicologic, neurologic, as well as others were entertained. Patient is an 81-year-old female who presents the ER for altered mental status from the retirement who is a reported DO NOT RESUSCITATE. Upon presentation she would open her eyes and moves her extremities to painful stimuli. Vitals show that she is febrile and tachycardic with a heart rate in the 130s. IVs were established. Blood work was obtained. CBC was fairly unremarkable. BMP shows a sodium of 152. Remainder labs are fairly unremarkable. Chest x-ray was a poor study but she has no focal infiltrate. She has had previous UTIs upon review. UA was pending upon admission. She was given IV antibiotics along with 2 L normal saline. Heart returned down to 100. Patient was admitted to internal medicine for further workup of her sepsis likely secondary to UTI. Consults Time Called: 1315 Consulting Physician: Kaya SuazoMNPG Returned Call: 1322 I reviewed the patient's case with Kaya Irving PA-C. She will evaluate the patient for further management. Impression Primary Impression: Sepsis Additional Impressions: Altered mental status Hypernatremia Scribe Attestation The scribe's documentation has been prepared under my direction and personally reviewed by me in its entirety. I confirm that the note above accurately reflects all work, treatment, procedures, and medical decision making performed by me. Departure Information Dispostion Being Evaluated By Hospitalist Referrals HaywoodBraxton (PCP) Patient Instructions My [facility] Problem Qualifiers Primary Impression: Sepsis Sepsis type: sepsis due to unspecified organism Qualified Codes: A41.9 - Sepsis, unspecified organism Additional Impressions: Altered mental status Altered mental status type: unspecified Qualified Codes: R41.82 - Altered mental status, unspecified
[2017-02-21 15:30] VITALS: BP 117/75; PULSE 104; TEMP 37.2; O2SAT 97; Ht 149.9 cm; Wt 97.5 kg
[2017-02-21 15:30] LABS: MANUAL MICROSCOPIC REQUIRED? NO; REVIEW REQ? YES; URINE BILIRUBIN NEG (NEG)
[2017-02-21] MEDS ORDERED: PATIENT'S HEIGHT AND/OR WEIGHT NEEDED SCH (15:45)
[2017-02-21] MEDS ORDERED: LEVOFLOXACIN CONSULT ACTIVE PRN (16:15)
--- NOTE | 2017-02-21 16:19 | Pharmacy Progress Note ---
Pharmacy Abx Initial Consult Date of Service Feb 21, 2017. Pharmacy Dosing Scope Date of Consult: 02/21/17 Consultation requested by: Armen Irving, PAC Pharmacy is consulted to initiate vancomycin and Levaquin IV dosing therapy, order appropriate labs and adjust drug dose/frequency. Subjective The patient is a 81 year old female admitted on Feb 21, 2017 at 13:49 for sepsis secondary to UTI or possible pulmonary source. Objective Height (Feet): 4 Height (Inches): 11.00 Weight (Kilograms): 94.600 Vital Signs (Past 12Hrs) Vital Signs Past 12 Hours Date Time Temp Pulse Resp B/P (MAP) Pulse Ox O2 Delivery O2 Flow Rate FiO2 02/21/17 15:30 37.2 104 18 117/75 97 Nasal Cannula 2.0 02/21/17 14:06 96 Nasal Cannula 2.0 02/21/17 14:05 105 24 104/83 85 Room Air 02/21/17 13:58 105 02/21/17 12:54 106 24 106/72 90 Room Air 02/21/17 12:02 122 02/21/17 11:48 39.4 02/21/17 11:36 96 Room Air 02/21/17 11:36 122 24 122/108 96 Room Air Lab Results (24Hrs) Test 02/21/17 11:33 02/21/17 11:35 02/21/17 12:09 02/21/17 12:14 Bedside Glucose 124 mg/dl (70-90) White Blood Count 8.18 K/uL (4.8-10.8) Red Blood Count 5.67 M/uL (4.2-5.4) Hemoglobin 17.0 g/dL (12.0-16.0) Hematocrit 51.1 % (37-47) Mean Corpuscular Volume 90.1 fL (80-100) Mean Corpuscular Hemoglobin 30.0 pg (25-34) Mean Corpuscular Hemoglobin Concent 33.3 g/dl (32-36) Platelet Count 150 K/uL (130-400) Mean Platelet Volume 12.4 fL (7.4-10.4) Neutrophils (%) (Auto) 73.1 % Lymphocytes (%) (Auto) 14.7 % Monocytes (%) (Auto) 10.8 % Eosinophils (%) (Auto) 0.5 % Basophils (%) (Auto) 0.5 % Neutrophils # (Auto) 5.99 K/uL (1.4-6.5) Lymphocytes # (Auto) 1.20 K/uL (1.2-3.4) Monocytes # (Auto) 0.88 K/uL (0.11-0.59) Eosinophils # (Auto) 0.04 K/uL (0-0.5) Basophils # (Auto) 0.04 K/uL (0-0.2) RDW Standard Deviation 47.5 fL (36.4-46.3) RDW Coefficient of Variation 14.3 % (11.5-14.5) Immature Granulocyte % (Auto) 0.4 % Immature Granulocyte # (Auto) 0.03 K/uL (0.00-0.02) Sodium Level 152 mmol/L (136-145) Potassium Level 3.9 mmol/L (3.5-5.1) Chloride Level 117 mmol/L (98-107) Carbon Dioxide Level 24 mmol/L (21-32) Anion Gap 11.0 mmol/L (3-11) 16.0 mmol/L (16-25) Blood Urea Nitrogen 45 mg/dl (7-18) Creatinine 1.40 mg/dl (0.60-1.20) Estimated GFR () 40.7 Estimated GFR (Non- 35.1 BUN/Creatinine Ratio 32.4 (10-20) Random Glucose 131 mg/dl (70-99) Calcium Level 9.1 mg/dl (8.5-10.1) Magnesium Level 3.2 mg/dl (1.8-2.4) Total Bilirubin 0.7 mg/dl (0.2-1) Direct Bilirubin 0.2 mg/dl (0-0.2) Aspartate Amino Transf (AST/SGOT) 28 U/L (15-37) Alanine Aminotransferase (ALT/SGPT) 38 U/L (12-78) Alkaline Phosphatase 97 U/L (45-117) Total Creatine Kinase 50 U/L (26-192) Creatine Kinase MB < 0.5 ng/ml (0.5-3.6) Creatine Kinase MB Ratio (0-3.0) Troponin I 0.031 ng/ml (0-0.045) Total Protein 7.5 gm/dl (6.4-8.2) Albumin 3.2 gm/dl (3.4-5.0) Bedside Lactic Acid Venous 1.43 mmol/L (0.90-1.70) Bedside Hemoglobin 17.0 g/dl (12.0-16.0) Bedside Hematocrit 50 % (37-47) Bedside Sodium 149 mEq/L (135-144) Bedside Potassium 4.6 mEq/L (3.3-5.0) Bedside Chloride 116 mEq/L (101-112) Bedside Total CO2 23 mEq/l (24-31) Bedside Blood Urea Nitrogen 56 mg/dl (7-18) Bedside Creatinine 1.4 mg/dl (0.6-1.3) Bedside Glucose (other) 142 mg/dl (70-99) Bedside Ionized Calcium (Michael) 1.11 mmol/l (1.12-1.32) Test 02/21/17 13:00 02/21/17 14:35 02/21/17 16:00 Prothrombin Time 12.9 SECONDS (9.0-12.0) Prothromb Time International Ratio 1.2 (0.9-1.1) Urine Color DK YELLOW Urine Appearance TURBID (CLEAR) Urine pH 5.0 (4.5-7.5) Urine Specific [place] 1.028 (1.000-1.030) Urine Protein 1+ (NEG) Urine Glucose (UA) NEG (NEG) Urine Ketones TRACE (NEG) Urine Occult Blood TRACE (NEG) Urine Nitrite NEG (NEG) Urine Bilirubin NEG (NEG) Urine Urobilinogen NEG (NEG) Urine Leukocyte Esterase LARGE (NEG) Urine WBC (Auto) >30 /hpf (0-5) Urine RBC (Auto) 0-4 /hpf (0-4) Urine Hyaline Casts (Auto) 5-10 /lpf (0-5) Urine Epithelial Cells (Auto) >30 /lpf (0-5) Urine Bacteria (Auto) 2+ (NEG) Urine Yeast (Auto) PRESENT (NONE PRSENT) Micro Results Date/Time Source Procedure Growth Status 02/21/17 12:05 Blood Blood Culture Pending Received 02/21/17 11:35 Blood Blood Culture Pending Received 02/21/17 14:35 Urine,Catheterized Urine Culture Pending Received Risk Factors for Resistance * Resident in a fdc or extended-care facility * History of infection with a multidrug-resistant organism: MRSA UTI Assessment & Plan Assessment 81 year old female admitted with sepsis, source possibly urinary or pulmonary Vancomycin and Levaquin initiated for broad spectrum coverage, with history of MRSA UTI Plan Vancomycin IV * Loading dose: 2000 mg (22 mg/kg) * Maintenance dose: 1750 mg IV (18.5 mg/kg) every 24 hours - dosed based upon baseline SCr of 1 (this will need adjusted if SCr does not improve in next 24 hours) * Goal trough level for UTI, history of MRSA : 15 to 20 mcg/mL * Trough level ordered for 02/23/17 - prior to steady state so need to evaluate level with caution Levaquin * 750 mg IV q48h for CrCl between 20-49 mL/min - currently only ordered for 48hr so will need to re-evaluate Pharmacy will continue to follow and will adjust dose/frequency as necessary. Thank you.
[2017-02-21] MEDS ORDERED: LEVOFLOXACIN 750MG / D5W IV SCH (16:30)
[2017-02-21] MEDS: FLUCONAZOLE / NSS 200 MG in PREMIXED NSS 100 ML IV SCH (18:38)
[2017-02-21 19:23] VITALS: BP_SYST 108; BP_SYST 137; BP_DIAS 118; BP_DIAS 85; PULSE 98; TEMP 36.7; O2SAT 95
[2017-02-21 19:48] LABS: CKMB/CK RATIO 2.3 (0-3.0)
[2017-02-21 20:00] VITALS: O2SAT 96
[2017-02-21] MEDS: HEPARIN SOD 5000 UNIT/0.5 ML CARP SQ SCH (21:11)
[2017-02-21] MEDS: SIMVASTATIN 10 MG TAB PO SCH (21:12)
[2017-02-21 23:26] VITALS: BP 123/91; PULSE 104; TEMP 36.5; O2SAT 98
[2017-02-22] VITALS (8 sets, daily range): BP systolic 109–136; BP diastolic 77–95; PULSE 89–105; TEMP 36.4–37.1; O2SAT 92–99
[2017-02-22 03:14] LABS: BASO % 0.1 %; BASO ABS # 0.01 K/uL (0-0.2); COMPLETE YES; EOS % 3.3 %; HEMATOCRIT 45.9 % (37-47); IG% 0.3 %; LYMPH % 10.7 %; LYMPH ABS # 0.84 K/uL (1.2-3.4); MEAN CELL VOLUME 92.5 fL (80-100); MEAN CORPUSCULAR HGB CONC 32.5 g/dl (32-36); MEAN PLATELET VOLUME 11.9 fL (7.4-10.4); MONO % 12.6 %; PLATELET COUNT 123 K/uL (130-400); RED BLOOD COUNT 4.96 M/uL (4.2-5.4); WHITE BLOOD COUNT 7.85 K/uL (4.8-10.8)
[2017-02-22 03:40] LABS: BUN/CREATININE RATIO 38.5 (10-20); CALCIUM 8.3 mg/dl (8.5-10.1); CKMB/CK RATIO 2.7 (0-3.0); MAGNESIUM 2.9 mg/dl (1.8-2.4); POTASSIUM 3.9 mmol/L (3.5-5.1)
--- NOTE | 2017-02-22 07:32 | Progress Note ---
Subjective Date of Service: Feb 22, 2017. Subjective this pt is slightly improved, her son does not feel she is doing that well and is concerned that her mental status has declined over the last month, he feels she is not quite herself Problem List Medical Problems: (1) Altered mental status Status: Acute (2) Fall Status: Acute (3) Fall Status: Acute (4) Hip pain Status: Acute (5) Hypernatremia Status: Acute (6) Muscle spasm Status: Acute (7) UTI (urinary tract infection) Status: Acute (8) UTI (urinary tract infection) Status: Acute (9) Weakness Status: Acute Review of Systems Constitutional: + weakness, + fatigue, No fever, No chills ENT: + sore throat, No trouble swallowing Respiratory: No cough, No shortness of breath, No dyspnea on exertion Cardiac: No PND, No edema Abdomen: No pain, No nausea, No vomiting, No diarrhea Psychiatric: + depression symptoms, + anhedonism Objective Vital Signs Date Time Temp Pulse Resp B/P (MAP) Pulse Ox O2 Delivery O2 Flow Rate FiO2 02/22/17 04:00 96 Room Air 02/22/17 03:13 37.1 105 22 133/95 (108) 98 Nasal Cannula 2.0 02/22/17 00:00 96 Room Air 02/21/17 23:26 36.5 104 22 123/91 (102) 98 Nasal Cannula 02/21/17 20:00 96 Room Air 02/21/17 19:23 36.7 98 18 108/85 (93) 95 Nasal Cannula 2.0 02/21/17 15:30 37.2 104 18 117/75 97 Nasal Cannula 2.0 02/21/17 14:06 96 Nasal Cannula 2.0 02/21/17 14:05 105 24 104/83 85 Room Air 02/21/17 13:58 105 02/21/17 12:54 106 24 106/72 90 Room Air 02/21/17 12:02 122 02/21/17 11:48 39.4 02/21/17 11:36 96 Room Air 02/21/17 11:36 122 24 122/108 96 Room Air Physical Exam General Appearance: WD/WN, + mild distress Eyes: PERRL, EOMI ENT: + pharyngeal erythema (plus concerns for thrush) Neck: supple, thyroid normal Respiratory/Chest: chest non-tender, lungs clear, normal breath sounds Cardiovascular: regular rate, rhythm, no murmur Abdomen: normal bowel sounds, non tender, soft Extremities: + pedal edema, + swelling Neurologic/Psychiatric: alert, + depressed affect, + disoriented Laboratory Results Last 24 Hours Test 02/21/17 11:33 02/21/17 11:35 02/21/17 12:09 02/21/17 12:14 Bedside Glucose 124 mg/dl White Blood Count 8.18 K/uL Red Blood Count 5.67 M/uL Hemoglobin 17.0 g/dL Hematocrit 51.1 % Mean Corpuscular Volume 90.1 fL Mean Corpuscular Hemoglobin 30.0 pg Mean Corpuscular Hemoglobin Concent 33.3 g/dl Platelet Count 150 K/uL Mean Platelet Volume 12.4 fL Neutrophils (%) (Auto) 73.1 % Lymphocytes (%) (Auto) 14.7 % Monocytes (%) (Auto) 10.8 % Eosinophils (%) (Auto) 0.5 % Basophils (%) (Auto) 0.5 % Neutrophils # (Auto) 5.99 K/uL Lymphocytes # (Auto) 1.20 K/uL Monocytes # (Auto) 0.88 K/uL Eosinophils # (Auto) 0.04 K/uL Basophils # (Auto) 0.04 K/uL RDW Standard Deviation 47.5 fL RDW Coefficient of Variation 14.3 % Immature Granulocyte % (Auto) 0.4 % Immature Granulocyte # (Auto) 0.03 K/uL Sodium Level 152 mmol/L Potassium Level 3.9 mmol/L Chloride Level 117 mmol/L Carbon Dioxide Level 24 mmol/L Anion Gap 11.0 mmol/L 16.0 mmol/L Blood Urea Nitrogen 45 mg/dl Creatinine 1.40 mg/dl Estimated GFR () 40.7 Estimated GFR (Non- 35.1 BUN/Creatinine Ratio 32.4 Random Glucose 131 mg/dl Calcium Level 9.1 mg/dl Magnesium Level 3.2 mg/dl Total Bilirubin 0.7 mg/dl Direct Bilirubin 0.2 mg/dl Aspartate Amino Transf (AST/SGOT) 28 U/L Alanine Aminotransferase (ALT/SGPT) 38 U/L Alkaline Phosphatase 97 U/L Total Creatine Kinase 50 U/L Creatine Kinase MB < 0.5 ng/ml Creatine Kinase MB Ratio Troponin I 0.031 ng/ml Total Protein 7.5 gm/dl Albumin 3.2 gm/dl Bedside Lactic Acid Venous 1.43 mmol/L Bedside Hemoglobin 17.0 g/dl Bedside Hematocrit 50 % Bedside Sodium 149 mEq/L Bedside Potassium 4.6 mEq/L Bedside Chloride 116 mEq/L Bedside Total CO2 23 mEq/l Bedside Blood Urea Nitrogen 56 mg/dl Bedside Creatinine 1.4 mg/dl Bedside Glucose (other) 142 mg/dl Bedside Ionized Calcium (Michael) 1.11 mmol/l Test 02/21/17 13:00 02/21/17 14:35 02/21/17 16:27 02/21/17 17:53 Prothrombin Time 12.9 SECONDS Prothromb Time International Ratio 1.2 Urine Color DK YELLOW Urine Appearance TURBID Urine pH 5.0 Urine Specific [place] 1.028 Urine Protein 1+ Urine Glucose (UA) NEG Urine Ketones TRACE Urine Occult Blood TRACE Urine Nitrite NEG Urine Bilirubin NEG Urine Urobilinogen NEG Urine Leukocyte Esterase LARGE Urine WBC (Auto) >30 /hpf Urine RBC (Auto) 0-4 /hpf Urine Hyaline Casts (Auto) 5-10 /lpf Urine Epithelial Cells (Auto) >30 /lpf Urine Bacteria (Auto) 2+ Urine Yeast (Auto) PRESENT Lactic Acid Level 1.2 mmol/L Bedside Glucose 109 mg/dl Test 02/21/17 19:20 02/22/17 03:08 02/22/17 06:22 Total Creatine Kinase 39 U/L 41 U/L Creatine Kinase MB 0.9 ng/ml 1.1 ng/ml Creatine Kinase MB Ratio 2.3 2.7 Troponin I 0.041 ng/ml 0.033 ng/ml White Blood Count 7.85 K/uL Red Blood Count 4.96 M/uL Hemoglobin 14.9 g/dL Hematocrit 45.9 % Mean Corpuscular Volume 92.5 fL Mean Corpuscular Hemoglobin 30.0 pg Mean Corpuscular Hemoglobin Concent 32.5 g/dl Platelet Count 123 K/uL Mean Platelet Volume 11.9 fL Neutrophils (%) (Auto) 73.0 % Lymphocytes (%) (Auto) 10.7 % Monocytes (%) (Auto) 12.6 % Eosinophils (%) (Auto) 3.3 % Basophils (%) (Auto) 0.1 % Neutrophils # (Auto) 5.73 K/uL Lymphocytes # (Auto) 0.84 K/uL Monocytes # (Auto) 0.99 K/uL Eosinophils # (Auto) 0.26 K/uL Basophils # (Auto) 0.01 K/uL RDW Standard Deviation 49.7 fL RDW Coefficient of Variation 14.6 % Immature Granulocyte % (Auto) 0.3 % Immature Granulocyte # (Auto) 0.02 K/uL Sodium Level 155 mmol/L Potassium Level 3.9 mmol/L Chloride Level 122 mmol/L Carbon Dioxide Level 25 mmol/L Anion Gap 8.0 mmol/L Blood Urea Nitrogen 39 mg/dl Creatinine 1.00 mg/dl Est Creatinine Clear Calc Drug Dose 44.4 ml/min Estimated GFR () 61.2 Estimated GFR (Non- 52.8 BUN/Creatinine Ratio 38.5 Random Glucose 84 mg/dl Calcium Level 8.3 mg/dl Magnesium Level 2.9 mg/dl Bedside Glucose 86 mg/dl Assessment and Plan 81-F with metabolic encephalopathy suspect urinary source, new ECG changes, baseline dementia Metabolic encephalopathy/sepsis-Past Urine cultures reviewed. + MRSA and strep , initial culture shows strep vancomycin, levaquin son concerned regarding recent decline has been for few weeks, will check CT head for CVA or SAH/SDH abnormal EKG-->probably secondary to demand ischemia, no troponin abnormality Acute on chronic renal failure secondary to sepsis, resolved HTN-enalapril continue diltiazem ER 240 mg if BP is stable oral thrush on nystatin GERD Pantoprazole 40 mg daily while in-house DVT prophylaxis Heparin 5000 u subQ BID -LEVEL V DO NO RESUSCITATE Heparin for DVT prevention
[2017-02-22] MEDS: HEPARIN SOD 5000 UNIT/0.5 ML CARP SQ SCH ×2 (09:06→21:27)
[2017-02-22] MEDS: SODIUM CHLORIDE 0.9% 1000ML 1,000 ML IV SCH (09:10)
[2017-02-22] MEDS: DILTIAZEM HCL 240 MG CAPCR PO SCH (09:10)
[2017-02-22] MEDS: VANCOMYCIN INJ 1,750 MG in SODIUM CHLORIDE 0.9% 500ML 500 ML IV SCH (13:38)
[2017-02-22] MEDS: NYSTATIN SUSP 500,000 U/5 ML UDC PO SCH ×3 (13:38→22:29)
--- NOTE | 2017-02-22 15:56 | DIAGNOSTIC IMAGING REPORT ---
CT SCAN OF THE BRAIN WITHOUT IV CONTRAST CLINICAL HISTORY: Sepsis. COMPARISON STUDY: CT of the brain dated 01/06/2017. TECHNIQUE: Unenhanced axial CT scan of the brain is performed from the vertex to the skull base. CT DOSE: 537.48 mGy.cm FINDINGS: Brain parenchyma: There are age-related involutional changes noting advanced confluent subcortical and periventricular microangiopathic change. A coarse calcification is again noted in the left occipital lobe. There is no hemorrhage, mass effect, or evidence of acute territorial ischemia by CT criteria. [place]-white matter is preserved. No extra-axial fluid collection is seen. Ventricles, sulci, cisterns: Prominent secondary to involutional change. Intracranial vasculature: There is atherosclerotic calcification of the cavernous carotid and vertebral arteries. Calvarium: Unremarkable. Sinuses and mastoids: The visualized paranasal sinuses are clear. The mastoid air cells are well pneumatized. Orbits: The bony orbits are grossly intact. IMPRESSION: Senescent changes as above with no hemorrhage, mass effect, or evidence of acute territorial ischemia by CT criteria. Electronically signed by: Rio Purcell M.D. 02/22/2017 3:54 PM Dictated Date/Time: 02/22/2017 3:50 PM
[2017-02-22] MEDS: FLUCONAZOLE / NSS 200 MG in PREMIXED NSS 100 ML IV SCH (17:31)
[2017-02-22] MEDS ORDERED: NURSING VERBAL MED ORDER ONE (21:00)
[2017-02-22] MEDS ORDERED: DEXTROSE 50% 50 ML SYR IV STA (21:14)
[2017-02-22 21:49] LABS: BUN/CREATININE RATIO 29.4 (10-20); CREATININE 0.95 mg/dl (0.60-1.20); MAGNESIUM 2.7 mg/dl (1.8-2.4); POTASSIUM 3.9 mmol/L (3.5-5.1)
[2017-02-22 22:14] LABS: CALCIUM 8.5 mg/dl (8.5-10.1)
[2017-02-22] MEDS: D5W AND 1/4NSS + 20MEQ KCL 1,000 ML IV SCH (22:21)
[2017-02-22] MEDS: SIMVASTATIN 10 MG TAB PO SCH (22:29)
[2017-02-23] VITALS (8 sets, daily range): BP systolic 105–132; BP diastolic 52–84; PULSE 81–97; TEMP 36.8–37.7; O2SAT 92–99
[2017-02-23 06:31] LABS: BUN/CREATININE RATIO 30.1 (10-20); CALCIUM 8.1 mg/dl (8.5-10.1); CREATININE 0.74 mg/dl (0.60-1.20); POTASSIUM 3.7 mmol/L (3.5-5.1)
[2017-02-23 07:20] LABS: BASO % 0.2 %; BASO ABS # 0.01 K/uL (0-0.2); COMPLETE YES; EOS % 4.3 %; HEMATOCRIT 41.9 % (37-47); IG% 0.3 %; LYMPH % 15.3 %; LYMPH ABS # 0.96 K/uL (1.2-3.4); MEAN CELL VOLUME 92.9 fL (80-100); MEAN CORPUSCULAR HEMOGLOBIN 30.2 pg (25-34); MEAN CORPUSCULAR HGB CONC 32.5 g/dl (32-36); MONO % 9.3 %; NEUT % 70.6 %; PLATELET COUNT 106 K/uL (130-400); RED BLOOD COUNT 4.51 M/uL (4.2-5.4); WHITE BLOOD COUNT 6.26 K/uL (4.8-10.8)
[2017-02-23] MEDS: D5W AND 1/4NSS + 20MEQ KCL 1,000 ML IV SCH (08:00)
[2017-02-23] MEDS: DILTIAZEM HCL 240 MG CAPCR PO SCH (08:01)
[2017-02-23] MEDS: NYSTATIN SUSP 500,000 U/5 ML UDC PO SCH ×4 (08:01→21:30)
[2017-02-23] MEDS: HEPARIN SOD 5000 UNIT/0.5 ML CARP SQ SCH ×2 (08:06→21:47)
[2017-02-23] MEDS ORDERED: VANCOMYCIN TROUGH ONE (13:30)
[2017-02-23] MEDS: VANCOMYCIN INJ 1,750 MG in SODIUM CHLORIDE 0.9% 500ML 500 ML IV SCH (13:47)
--- NOTE | 2017-02-23 15:48 | Progress Note ---
Subjective Date of Service: Feb 23, 2017. Subjective pt is leaning to the left but otherwise looks and speaks with more strength than yesterday, has no focal complaints, strep identified as enterococcus in urine, blood gram positive shows coag neg staph, second bottle negative Problem List Medical Problems: (1) Altered mental status Status: Acute (2) Fall Status: Acute (3) Fall Status: Acute (4) Hip pain Status: Acute (5) Hypernatremia Status: Acute (6) Muscle spasm Status: Acute (7) UTI (urinary tract infection) Status: Acute (8) UTI (urinary tract infection) Status: Acute (9) Weakness Status: Acute Review of Systems Constitutional: + weakness, + fatigue, No fever, No chills Respiratory: No cough, No sputum Cardiac: No chest pain, No orthopnea Abdomen: No pain, No nausea, No vomiting, No diarrhea Female : No dysuria, No urinary frequency Neurologic: + memory loss, + weakness, + balance problems Objective Vital Signs Date Time Temp Pulse Resp B/P (MAP) Pulse Ox O2 Delivery O2 Flow Rate FiO2 02/23/17 04:00 37.1 81 16 122/81 (95) 99 Nasal Cannula 2.0 02/23/17 04:00 Nasal Cannula 2.0 02/23/17 00:00 Nasal Cannula 2.0 02/22/17 23:10 37.0 89 19 109/77 (88) 92 Nasal Cannula 1.0 02/22/17 20:00 2.0 02/22/17 19:48 36.6 90 21 124/91 (102) 99 Nasal Cannula 2.0 02/22/17 16:10 Nasal Cannula 2.0 02/22/17 15:41 36.6 92 23 121/91 (101) 96 Nasal Cannula 2.0 02/22/17 12:11 36.4 101 15 120/83 (95) 94 Nasal Cannula 2.0 02/22/17 12:10 Nasal Cannula 2.0 02/22/17 08:19 36.6 105 24 136/95 (109) 96 Nasal Cannula 2.0 02/22/17 08:10 Nasal Cannula 2.0 Physical Exam General Appearance: + mild distress, + obese Neck: supple, thyroid normal Respiratory/Chest: chest non-tender, lungs clear, normal breath sounds Cardiovascular: regular rate, rhythm, no murmur Abdomen: normal bowel sounds, non tender, soft Neurologic/Psychiatric: alert, oriented x 3 Laboratory Results Last 24 Hours Test 02/22/17 20:41 02/22/17 21:20 02/22/17 22:08 02/23/17 02:04 Bedside Glucose 65 mg/dl 137 mg/dl 111 mg/dl Sodium Level 155 mmol/L Potassium Level 3.9 mmol/L Chloride Level 123 mmol/L Carbon Dioxide Level 24 mmol/L Anion Gap 8.0 mmol/L Blood Urea Nitrogen 28 mg/dl Creatinine 0.95 mg/dl Est Creatinine Clear Calc Drug Dose 46.3 ml/min Estimated GFR () 65.1 Estimated GFR (Non- 56.2 BUN/Creatinine Ratio 29.4 Random Glucose 74 mg/dl Calcium Level 8.5 mg/dl Magnesium Level 2.7 mg/dl Test 02/23/17 05:15 White Blood Count 6.26 K/uL Red Blood Count 4.51 M/uL Hemoglobin 13.6 g/dL Hematocrit 41.9 % Mean Corpuscular Volume 92.9 fL Mean Corpuscular Hemoglobin 30.2 pg Mean Corpuscular Hemoglobin Concent 32.5 g/dl Platelet Count 106 K/uL Mean Platelet Volume 12.0 fL Neutrophils (%) (Auto) 70.6 % Lymphocytes (%) (Auto) 15.3 % Monocytes (%) (Auto) 9.3 % Eosinophils (%) (Auto) 4.3 % Basophils (%) (Auto) 0.2 % Neutrophils # (Auto) 4.42 K/uL Lymphocytes # (Auto) 0.96 K/uL Monocytes # (Auto) 0.58 K/uL Eosinophils # (Auto) 0.27 K/uL Basophils # (Auto) 0.01 K/uL RDW Standard Deviation 49.6 fL RDW Coefficient of Variation 14.5 % Immature Granulocyte % (Auto) 0.3 % Immature Granulocyte # (Auto) 0.02 K/uL Sodium Level 156 mmol/L Potassium Level 3.7 mmol/L Chloride Level 124 mmol/L Carbon Dioxide Level 25 mmol/L Anion Gap 7.0 mmol/L Blood Urea Nitrogen 22 mg/dl Creatinine 0.74 mg/dl Est Creatinine Clear Calc Drug Dose 61.1 ml/min Estimated GFR () 88.1 Estimated GFR (Non- 76.0 BUN/Creatinine Ratio 30.1 Random Glucose 102 mg/dl Calcium Level 8.1 mg/dl Assessment and Plan 81-F with metabolic encephalopathy suspect urinary source, found to have enterocaccal uti, blood cultures likely a contaminant, new ECG changes, baseline dementia Metabolic encephalopathy/sepsis-Past Urine cultures reviewed. , initial culture shows enterococcus in urine palomo sensitive, blood cultures also positive but one of two is coag negative staph, other negative so suspect this a contaminant vancomycin, check echo for valvular vegetation given previous strep infections also son concerned regarding recent decline has been for few weeks, CT head 02/22 negative for CVA or SAH/SDH abnormal EKG-->probably secondary to demand ischemia, no check pain , no troponin abnormality Acute on chronic renal failure secondary to sepsis, resolved with hydration and treatment of infection HTN-stable enalapril continue diltiazem ER 240 mg if BP is stable oral thrush on nystatin, improved GERD Pantoprazole 40 mg daily while in-house DVT prophylaxis Heparin 5000 u subQ BID -LEVEL V DO NO RESUSCITATE Heparin for DVT prevention
--- NOTE | 2017-02-23 15:58 | Pharmacy Progress Note ---
Pharmacy Antibiotic Prog Note Date of Service Feb 23, 2017. Subjective The patient is currently receiving Vancomycin 1750 mg (~19mg/kg) IV every 24 hours for the treatment of a complicated UTI in an obese patient (BMI greater than 35kg/m2; BMI= 43kg/m2). The patient is currently on day # 4 of Vancomycin IV therapy. Objective Height (Feet): 4 Height (Inches): 11.00 Weight (Kilograms): 97.500 Levels: Item Value Date Time Vancomycin Level Trough 6.1 mcg/ml 02/23/17 1315 Lab Results (24hrs): Test 02/22/17 21:20 02/22/17 22:08 02/23/17 02:04 02/23/17 05:15 Sodium Level 155 mmol/L (136-145) 156 mmol/L (136-145) Potassium Level 3.9 mmol/L (3.5-5.1) 3.7 mmol/L (3.5-5.1) Chloride Level 123 mmol/L (98-107) 124 mmol/L (98-107) Carbon Dioxide Level 24 mmol/L (21-32) 25 mmol/L (21-32) Anion Gap 8.0 mmol/L (3-11) 7.0 mmol/L (3-11) Blood Urea Nitrogen 28 mg/dl (7-18) 22 mg/dl (7-18) Creatinine 0.95 mg/dl (0.60-1.20) 0.74 mg/dl (0.60-1.20) Est Creatinine Clear Calc Drug Dose 46.3 ml/min 61.1 ml/min Estimated GFR () 65.1 88.1 Estimated GFR (Non- 56.2 76.0 BUN/Creatinine Ratio 29.4 (10-20) 30.1 (10-20) Random Glucose 74 mg/dl (70-99) 102 mg/dl (70-99) Calcium Level 8.5 mg/dl (8.5-10.1) 8.1 mg/dl (8.5-10.1) Magnesium Level 2.7 mg/dl (1.8-2.4) Bedside Glucose 137 mg/dl (70-90) 111 mg/dl (70-90) White Blood Count 6.26 K/uL (4.8-10.8) Red Blood Count 4.51 M/uL (4.2-5.4) Hemoglobin 13.6 g/dL (12.0-16.0) Hematocrit 41.9 % (37-47) Mean Corpuscular Volume 92.9 fL (80-100) Mean Corpuscular Hemoglobin 30.2 pg (25-34) Mean Corpuscular Hemoglobin Concent 32.5 g/dl (32-36) Platelet Count 106 K/uL (130-400) Mean Platelet Volume 12.0 fL (7.4-10.4) Neutrophils (%) (Auto) 70.6 % Lymphocytes (%) (Auto) 15.3 % Monocytes (%) (Auto) 9.3 % Eosinophils (%) (Auto) 4.3 % Basophils (%) (Auto) 0.2 % Neutrophils # (Auto) 4.42 K/uL (1.4-6.5) Lymphocytes # (Auto) 0.96 K/uL (1.2-3.4) Monocytes # (Auto) 0.58 K/uL (0.11-0.59) Eosinophils # (Auto) 0.27 K/uL (0-0.5) Basophils # (Auto) 0.01 K/uL (0-0.2) RDW Standard Deviation 49.6 fL (36.4-46.3) RDW Coefficient of Variation 14.5 % (11.5-14.5) Immature Granulocyte % (Auto) 0.3 % Immature Granulocyte # (Auto) 0.02 K/uL (0.00-0.02) Test 02/23/17 13:15 Vancomycin Level Trough 6.1 mcg/ml (SEE COMMENT) Micro Results: Item Value Date Time MRSA DNA Surveillance Screen - Final Complete 02/21/17 1535 Nasal Specimen Negative for MRSA by DNA Probe Urine Culture - Final Complete 02/21/17 1435 Urine,Catheterized Enterococcus Faecalis Blood Culture - Preliminary Resulted 02/21/17 1205 Blood NO GROWTH TO DATE. Blood Culture - Preliminary Resulted 02/21/17 1135 Blood Coag Neg Staphylococcus SPEC #: [id number] RC: 02/21/17 STATUS: COMP REQ #: [id number] RECD: 02/21/[address]: Archie Sterling, SOURCE: URINE CATH ENTR: 02/21/17-[address]: Braxton Cardoza [facility]: Kaya Irving PA-C ORDERED: CULTURE UR CATH Procedure Result Verified Site URINE CULTURE Final 02/23/17-1046 Organism 1 ENTEROCOCCUS FAECALIS COLONY COUNT >100,000 CFU/ml SENS SENSITIVITY TO FOLLOW 1. ENTEROCOCCUS FAECALIS Target Route Dose RX AB Cost M.I.C. IQ ------ ----- ------ -- ------ -------- - ------ AMPICILLIN S <=2 GENT SYNERGY S <=500 VANCOMYCIN S 2 PENICILLIN S 2 CIPROFLOXACIN S <=1 LEVOFLOXACIN S <=1 DAPTOMYCIN S 1 NITROFURANTOIN S <=32 STREP SYNERGY S <=1000 Streptomycin Synergy Screen S Gentamicin Synergy Screen S S = SENSITIVE I = INTERMEDIATE R = RESISTANT Recent Pertinent Medications Item Value Date Time Levofloxacin 500 100 ml @ 100 mls/hr 02/21/17 1315 mg/Prmx Q24H/IV Levofloxacin 750 150 ml @ 100 mls/hr 02/21/17 1630 mg/Prmx Q2D@1600/IV 02/21/17 1703 Piperacillin Sod/ 4.5 gm 02/21/17 1146 Tazobactam Sod NOW STAT/IV 02/21/17 1234 (Zosyn Iv) Vancomycin HCl 270 ml @ 125 mls/hr 02/21/17 1315 1000 mg/Sodium Q12/IV Chloride Vancomycin HCl 540 ml @ 200 mls/hr 02/21/17 1500 2000 mg/Sodium TODAY@1500 ONCE/IV 02/21/17 1446 Chloride Vancomycin HCl 535 ml @ 200 mls/hr 02/22/17 1400 1750 mg/Sodium DAILY@1400/IV 02/23/17 1347 Chloride Assessment & Plan Pharmacy has been consulted to dose and monitor Vancomycin for the treatment of a complicated UTI that is positive for e. faecalis (Vanc RAYMUNDO= 2) in an obese patient (BMI greater than 35kg/m2; BMI= 43kg/m2). Vancomycin trough level of 6.1mcg/mL is: Subtherapeutic Change to Vancomycin 1100 mg (~11mg/kg) IV every 12 hours. * Due to the changes in the patient's renal function and need for aggressive Vancomycin therapy for an RAYMUNDO=2, Vancomycin dose requires significant changes. * Estimated p'kinetic levels: ke= 0.0551/hr, t1/2= 13 hrs * Goal trough level estimate: between 15 - 20 mcg/mL (closer to 20mcg/mL with a Vanc RAYMUNDO=2). * Trough level has been ordered for: ~30 minutes before the 1000 dose. * Due to aggressive dosing regimen, once serum concentrations are achieved, Vancomycin dose may be decreased or dosing frequency may be extended. Pharmacy will continue to follow and will adjust dose/frequency as necessary. Thank you
[2017-02-23] MEDS: SIMVASTATIN 10 MG TAB PO SCH (21:30)
[2017-02-23] MEDS: VANCOMYCIN INJ 1,100 MG in SODIUM CHLORIDE 0.9% 250ML 250 ML IV SCH (22:13)
[2017-02-24 07:06] VITALS: BP 126/84; PULSE 83; TEMP 36.5; O2SAT 97
[2017-02-24 07:59] LABS: BASO % 0.6 %; BASO ABS # 0.04 K/uL (0-0.2); COMPLETE YES; ECHINOCYTES 1+; EOS % 3.9 %; HEMATOCRIT 42.2 % (37-47); IG% 0.3 %; LARGE PLATELETS 1+; LYMPH % 19.5 %; LYMPH ABS # 1.36 K/uL (1.2-3.4); MEAN CELL VOLUME 92.3 fL (80-100); MEAN CORPUSCULAR HGB CONC 32.5 g/dl (32-36); MEAN PLATELET VOLUME 12.1 fL (7.4-10.4); MONO % 11.3 %; NEUT % 64.4 %; PLATELET COUNT 117 K/uL (130-400); RED BLOOD COUNT 4.57 M/uL (4.2-5.4); WHITE BLOOD COUNT 6.97 K/uL (4.8-10.8)
[2017-02-24] MEDS: DILTIAZEM HCL 240 MG CAPCR PO SCH (08:53)
[2017-02-24] MEDS: NYSTATIN SUSP 500,000 U/5 ML UDC PO SCH ×4 (08:58→20:00)
[2017-02-24] MEDS: HEPARIN SOD 5000 UNIT/0.5 ML CARP SQ SCH ×2 (09:03→21:39)
[2017-02-24] MEDS: VANCOMYCIN INJ 1,100 MG in SODIUM CHLORIDE 0.9% 250ML 250 ML IV SCH ×2 (10:16→21:42)
--- NOTE | 2017-02-24 13:25 | Progress Note ---
Subjective Date of Service: Feb 24, 2017. Subjective PT IS MORE AWAKE AND ALERT DESPITE HER ELEVATED SODIUM. SHE HAS DESIRE TO RETURN TO SNF SOON ABLE Problem List Medical Problems: (1) Altered mental status Status: Acute (2) Fall Status: Acute (3) Fall Status: Acute (4) Hip pain Status: Acute (5) Hypernatremia Status: Acute (6) Muscle spasm Status: Acute (7) UTI (urinary tract infection) Status: Acute (8) UTI (urinary tract infection) Status: Acute (9) Weakness Status: Acute Review of Systems Constitutional: + weakness, + fatigue, No fever, No chills Respiratory: No cough, No wheezing, No shortness of breath Cardiac: No chest pain, No edema Abdomen: No pain, No nausea, No vomiting, No diarrhea Female : No dysuria, No urinary frequency, No hematuria, No incontinence Neurologic: + memory loss, + weakness, + balance problems, No paralysis Psychiatric: No depression symptoms, No anhedonism Objective Vital Signs Date Time Temp Pulse Resp B/P (MAP) Pulse Ox O2 Delivery O2 Flow Rate FiO2 02/24/17 08:00 Nasal Cannula 2.0 02/24/17 07:06 36.5 83 18 126/84 (98) 97 Nasal Cannula 2.0 02/24/17 00:00 Nasal Cannula 2.0 02/23/17 23:00 37.4 89 18 132/84 (100) 96 Nasal Cannula 2.0 02/23/17 19:10 94 Nasal Cannula 2.0 02/23/17 18:53 37.7 89 18 114/72 (86) 94 Nasal Cannula 2.0 02/23/17 18:09 36.8 91 27 92 2.0 02/23/17 15:40 36.8 91 27 109/52 (71) 92 Nasal Cannula 2.0 Physical Exam General Appearance: WD/WN, + mild distress Eyes: PERRL, EOMI Neck: supple, no JVD Respiratory/Chest: chest non-tender, lungs clear, normal breath sounds Cardiovascular: regular rate, rhythm, no murmur Abdomen: normal bowel sounds, non tender, soft Extremities: no pedal edema, no calf tenderness Neurologic/Psychiatric: alert, oriented x 3 Laboratory Results Last 24 Hours Test 02/23/17 16:34 02/23/17 19:41 6/5/17 07:14 Bedside Glucose 83 mg/dl 100 mg/dl White Blood Count 6.97 K/uL Red Blood Count 4.57 M/uL Hemoglobin 13.7 g/dL Hematocrit 42.2 % Mean Corpuscular Volume 92.3 fL Mean Corpuscular Hemoglobin 30.0 pg Mean Corpuscular Hemoglobin Concent 32.5 g/dl Platelet Count 117 K/uL Mean Platelet Volume 12.1 fL Neutrophils (%) (Auto) 64.4 % Lymphocytes (%) (Auto) 19.5 % Monocytes (%) (Auto) 11.3 % Eosinophils (%) (Auto) 3.9 % Basophils (%) (Auto) 0.6 % Neutrophils # (Auto) 4.49 K/uL Lymphocytes # (Auto) 1.36 K/uL Monocytes # (Auto) 0.79 K/uL Eosinophils # (Auto) 0.27 K/uL Basophils # (Auto) 0.04 K/uL RDW Standard Deviation 49.2 fL RDW Coefficient of Variation 14.6 % Immature Granulocyte % (Auto) 0.3 % Immature Granulocyte # (Auto) 0.02 K/uL Large Platelets 1+ Echinocytes 1+ Assessment and Plan 81-F with metabolic encephalopathy suspect urinary source, found to have enterocaccal uti, blood cultures likely a contaminant, new ECG changes, baseline dementia Metabolic encephalopathy/sepsis-Past Urine cultures reviewed. , initial culture shows enterococcus in urine palomo sensitive, blood cultures also positive but one of two is coag negative staph, other negative so suspect this a contaminant vancomycin, check echo for valvular vegetation given previous strep infections also son concerned regarding recent decline has been for few weeks, CT head / negative for CVA or SAH/SDH Hypernatremia, will hydrate and encourage po abnormal EKG-->probably secondary to demand ischemia, no check pain , no troponin abnormality Acute on chronic renal failure secondary to sepsis, resolved with hydration and treatment of infection HTN-stable enalapril continue diltiazem ER 240 mg if BP is stable oral thrush on nystatin, improved GERD Pantoprazole 40 mg daily while in-house DVT prophylaxis Heparin 5000 u subQ BID -LEVEL V DO NO RESUSCITATE Heparin for DVT prevention
[2017-02-24] MEDS: SODIUM CHLORIDE 0.45% 1000ML 1,000 ML IV SCH ×2 (14:10→21:40)
[2017-02-24 15:15] VITALS: BP 113/87
[2017-02-24 15:58] VITALS: BP 113/87; PULSE 93; TEMP 36.5; O2SAT 97
--- NOTE | 2017-02-24 18:50 | ECHOCARDIOGRAM REPORT ---
*NOTICE TO RECEIVING DEMOCRAT AGENCY This information is strictly Confidential and protected under [place] law. [place] law prohibits you from making any further disclosure of this information unless further disclosure is expressly permitted by the written consent of the person to whom it pertains or is authorized by law. A general authorization for the release of medical or other information is not sufficient for this purpose. Hospital accepts no responsibility if the information is made available to any other person, INCLUDING THE PATIENT. Interpretation Summary * Name: CJ RAMIREZ Study Date: 02/24/2017 01:38 PM BP: 126/84 mmHg * Patient Location: [id number].2E\[id number]\E203\S\1 HR: 92 * : 1935 (M/d/yyyy) Gender: Female Height: 59 in * Age: 81 yrs Ethnicity: CA Weight: 214 lb * Ordering Physician: Jose Powers * Referring Physician: Braxton Cardoza * Performed By: Kathrine Joe RCS * * Reason For Study: ENDOCARDITIS * BSA: 1.9 m2 * -- Conclusions -- * 1. Normal LV size. Moderate asymmetric basal septal hypertrophy. No LVOT obstruction. * 2. Normal LV systolic function. LVEF 65-70%. No regional wall motion abnormalities. Grade 1 diastolic dysfunction. * 3. Normal RV size and function. * 4. No significant valvular pathology. * 5. Mildly dilated ascending aorta * 6. No apparent vegetations or signs of endocarditis * 7. Compared with prior study on 04/22/2013: No significant change Procedure Details * A complete two-dimensional transthoracic echocardiogram was performed (2D, M-mode, Doppler and color flow Doppler). Left Ventricle * The left ventricle is grossly normal size. * There is mild concentric left ventricular hypertrophy. * Moderate asymmetric basal septal hypertrophy * Echo findings are not consistent with left ventricular outflow obstruction. * Ejection Fraction = 65-70%. * No regional wall motion abnormalities noted. Right Ventricle * The right ventricle is grossly normal size. * The right ventricular systolic function is qualitatively normal. Atria * The left atrial size is normal. * Borderline left atrial enlargement. * Right atrial size is normal. * No ASD detected; PFO is not assessed. Mitral Valve * The mitral valve leaflets appear thickened, but open well. * There is no mitral valve stenosis. * Significant mitral regurgitation is absent. Tricuspid Valve * The tricuspid valve is not well visualized, but is grossly normal. * Significant tricuspid regurgitation is absent. Aortic Valve * The aortic valve opens well. * Aortic stenosis is absent. * There is no significant aortic regurgitation. Pulmonic Valve * The pulmonary valve is inadequately visualized, but the Doppler data is adequate for interpretation. * Pulmonic stenosis is absent. * There is no significant pulmonary regurgitation. Great Vessels * Mildly dilated ascending aorta. Pericardium/Pleural * There is no pericardial effusion. * There is no pleural effusion. Great Vessels * Normal inferior vena cava size and collapsability with sniff indicates a normal right atrial pressure of 3 mmHg Left Ventricular Diastolic Function * Grade I diastolic dysfunction, (abnormal relaxation pattern). MMode 2D Measurements and Calculations IVSd 1.8 cm LVIDd 3.3 cm LVPWd 1.2 cm IVS/LVPW 1.6 EDV(Teich) 44.6 ml EDV(cubed) 36.4 ml LV mass(C)d 178.8 grams LV mass(C)dI 94.2 grams/m\S\2 Ao root diam 3.1 cm Ao root area 7.5 cm\S\2 ACS 1.6 cm LA dimension 4.0 cm LA/Ao 1.3 LVOT diam 1.8 cm LVOT area 2.5 cm\S\2 Doppler Measurements and Calculations MV E max kristie 69.0 cm/sec MV A max kristie 146.7 cm/sec MV E/A 0.47 MV P1/2t max kristie 77.7 cm/sec MV P1/2t 80.8 msec MVA(P1/2t) 2.7 cm\S\2 MV dec slope 281.5 cm/sec\S\2 MV dec time 0.24 sec Ao V2 max 149.5 cm/sec Ao max PG 8.9 mmHg Ao max PG (full) -0.38 mmHg DAIJA(V,A) 2.6 cm\S\2 DAIJA(V,D) 2.6 cm\S\2 LV V1 max PG 9.3 mmHg LV V1 max 152.6 cm/sec PA V2 max 128.3 cm/sec PA max PG 6.6 mmHg
[2017-02-24 18:56] VITALS: O2SAT 97
[2017-02-24] MEDS: SIMVASTATIN 10 MG TAB PO SCH (21:00)
[2017-02-24 23:54] VITALS: BP 157/83; PULSE 93; TEMP 36.5; O2SAT 96
[2017-02-25] MEDS: SODIUM CHLORIDE 0.45% 1000ML 1,000 ML IV SCH ×3 (05:07→21:20)
[2017-02-25 06:45] VITALS: BP 134/84; PULSE 91; TEMP 36.4; O2SAT 98
[2017-02-25] MEDS: NYSTATIN SUSP 500,000 U/5 ML UDC PO SCH ×4 (07:24→21:50)
[2017-02-25] MEDS: DILTIAZEM HCL 240 MG CAPCR PO SCH (07:24)
[2017-02-25] MEDS: HEPARIN SOD 5000 UNIT/0.5 ML CARP SQ SCH ×2 (07:35→22:02)
[2017-02-25 08:11] LABS: CREATININE 0.59 mg/dl (0.60-1.20)
[2017-02-25] MEDS ORDERED: VANCOMYCIN TROUGH SCH (09:30)
[2017-02-25] MEDS: LEVOFLOXACIN 750 MG TAB PO SCH (11:22)
[2017-02-25 15:30] VITALS: BP 134/76; PULSE 91; TEMP 36.7; O2SAT 96
[2017-02-25 16:00] VITALS: O2SAT 96
--- NOTE | 2017-02-25 16:10 | Progress Note ---
Subjective Date of Service: Feb 25, 2017. Subjective Pt evaluation today including: conversation w/ patient Pt states she is feeling overall improved. She feels she is at her baseline mental status. She also tells me that she lives at home alone and without family in the area. Tolerating PO well. Denies urinary complaints. Pt denies fever, SOB, chest pain, abd pain, n/v/c/d, LE pain or swelling. ROS as noted above, otherwise neg. Problem List Medical Problems: (1) Altered mental status Status: Acute (2) Fall Status: Acute (3) Fall Status: Acute (4) Hip pain Status: Acute (5) Hypernatremia Status: Acute (6) Muscle spasm Status: Acute (7) UTI (urinary tract infection) Status: Acute (8) UTI (urinary tract infection) Status: Acute (9) Weakness Status: Acute Objective Vital Signs Date Time Temp Pulse Resp B/P (MAP) Pulse Ox O2 Delivery O2 Flow Rate FiO2 02/25/17 15:30 36.7 91 18 134/76 (95) 96 Nasal Cannula 2.0 02/25/17 08:00 Nasal Cannula 2.0 02/25/17 06:45 36.4 91 20 134/84 (101) 98 Nasal Cannula 2.0 02/25/17 00:00 Nasal Cannula 2.0 02/24/17 23:54 36.5 93 18 157/83 (107) 96 Nasal Cannula 3.0 02/24/17 18:56 97 Nasal Cannula 2.0 Physical Exam General Appearance: no apparent distress, + obese Respiratory/Chest: normal breath sounds, no respiratory distress Cardiovascular: regular rate, rhythm, no edema Abdomen: non tender, soft Extremities: non-tender, no pedal edema Neurologic/Psychiatric: alert, + pertinent finding (alert to person) Skin: normal color, warm/dry Laboratory Results Last 24 Hours Test 02/25/17 07:13 02/25/17 09:45 Creatinine 0.59 mg/dl Est Creatinine Clear Calc Drug Dose 76.7 ml/min Estimated GFR () 99.6 Estimated GFR (Non- 86.0 Vancomycin Level Trough 16.5 mcg/ml Assessment and Plan 81 y/o F with metabolic encephalopathy related to enterocaccal uti Metabolic encephalopathy/sepsis related to enterococcus in urine that is palomo sensitive blood cultures also positive 1/2 coag negative staph, other negative so likely contaminant vancomycin -> levaquin (02/25) ECHO neg for valvular vegetation given previous strep infections also son concerned regarding recent decline has been for few weeks, CT head 02/22 negative for CVA or SAH/SDH Hypernatremia, will hydrate and encourage po abnormal EKG-->probably secondary to demand ischemia no troponin abnormality Acute on chronic renal failure secondary to sepsis, resolved with hydration and treatment of infection HTN-stable Continue home meds oral thrush on nystatin, improved GERD Pantoprazole 40 mg daily while in-house -LEVEL V DO NO RESUSCITATE Heparin for DVT prevention PT/OT Pt from [place] [facility] for son x2 numbers
[2017-02-25] MEDS: SIMVASTATIN 10 MG TAB PO SCH (22:02)
[2017-02-25 23:20] VITALS: BP 118/83; PULSE 97; TEMP 37.3; O2SAT 96
[2017-02-26] MEDS: SODIUM CHLORIDE 0.45% 1000ML 1,000 ML IV SCH ×3 (05:01→21:56)
[2017-02-26] MEDS: DILTIAZEM HCL 240 MG CAPCR PO SCH ×2 (07:20→10:03)
[2017-02-26] MEDS: NYSTATIN SUSP 500,000 U/5 ML UDC PO SCH ×4 (07:20→20:42)
[2017-02-26 07:21] VITALS: BP 108/67; PULSE 84; TEMP 37.3; O2SAT 98
[2017-02-26] MEDS: HEPARIN SOD 5000 UNIT/0.5 ML CARP SQ SCH ×2 (08:05→20:46)
[2017-02-26] MEDS: LEVOFLOXACIN 750 MG TAB PO SCH (10:07)
[2017-02-26 13:33] LABS: BUN/CREATININE RATIO 14.9 (10-20); CREATININE 0.67 mg/dl (0.60-1.20); MAGNESIUM 2.3 mg/dl (1.8-2.4); POTASSIUM 3.2 mmol/L (3.5-5.1)
[2017-02-26 13:41] LABS: CALCIUM 8.5 mg/dl (8.5-10.1)
[2017-02-26 14:49] LABS: HEMATOCRIT 41.7 % (37-47); MEAN CELL VOLUME 87.6 fL (80-100); MEAN CORPUSCULAR HEMOGLOBIN 29.2 pg (25-34); MEAN CORPUSCULAR HGB CONC 33.3 g/dl (32-36); MEAN PLATELET VOLUME 11.4 fL (7.4-10.4); PLATELET COUNT 164 K/uL (130-400); RED BLOOD COUNT 4.76 M/uL (4.2-5.4); WHITE BLOOD COUNT 7.38 K/uL (4.8-10.8)
[2017-02-26 15:46] VITALS: BP 115/80; PULSE 88; TEMP 36.7; O2SAT 98
[2017-02-26 16:00] VITALS: O2SAT 95
[2017-02-26] MEDS: POTASSIUM CHLR 10 MEQ / WTR 10 MEQ in PREMIXED WATER 100 ML IV SCH ×4 (17:19→20:41)
--- NOTE | 2017-02-26 18:37 | Progress Note ---
Subjective Date of Service: Feb 26, 2017. Subjective Pt evaluation today including: conversation w/ patient, conversation w/ family (son and daughter via phone in 2 separate conversations) Pt has no complaints. Pt denies fever, SOB, chest pain, abd pain, n/v/c/d, LE pain or swelling. States she is eating without issue, however nursing reports that she has only taken a few bites. ROS as noted above, otherwise neg. Lengthy conversations with son and daughter via phone separately. They state that pt has had a rapid decline. Son was last in over the weekend due to living further away, daughter was in on Friday due to work yesterday. Daughter will be here tonight. Both state that their grandmother had a rapid decline once she was out of her home as well. Son states that he was increasingly concerned about mentation issues given increased falls and "a feeling I would get on the phone with her". Increasing confusion and short term memory issues. Both state that she loves chicken and mashed potatoes "and would live on that if she could". Both had concerns about her change in speech and diet since going to . Per son, no POA was designated so he and pt's daughter are working on guardianship. Discussed concerns about ongoing PO intake issues and if feeding tube would be pt's preference. They will discuss. Problem List Medical Problems: (1) Altered mental status Status: Acute (2) Fall Status: Acute (3) Fall Status: Acute (4) Hip pain Status: Acute (5) Hypernatremia Status: Acute (6) Muscle spasm Status: Acute (7) UTI (urinary tract infection) Status: Acute (8) UTI (urinary tract infection) Status: Acute (9) Weakness Status: Acute Objective Vital Signs Date Time Temp Pulse Resp B/P (MAP) Pulse Ox O2 Delivery O2 Flow Rate FiO2 02/26/17 16:00 95 Room Air 02/26/17 15:46 36.7 88 18 115/80 (92) 98 Nasal Cannula 2.0 02/26/17 08:00 Nasal Cannula 2.0 02/26/17 07:21 37.3 84 20 108/67 (81) 98 Nasal Cannula 2.0 02/26/17 00:00 Nasal Cannula 2.0 02/25/17 23:20 37.3 97 18 118/83 (95) 96 2.0 Physical Exam Comments: General Appearance: no apparent distress, + obese Respiratory/Chest: normal breath sounds, no respiratory distress Cardiovascular: regular rate, rhythm, no edema Abdomen: non tender, soft Extremities: non-tender, no pedal edema Neurologic/Psychiatric: alert, + pertinent finding (alert to person) Skin: normal color, warm/dry Laboratory Results Last 24 Hours Test 02/26/17 12:28 White Blood Count 7.38 K/uL Red Blood Count 4.76 M/uL Hemoglobin 13.9 g/dL Hematocrit 41.7 % Mean Corpuscular Volume 87.6 fL Mean Corpuscular Hemoglobin 29.2 pg Mean Corpuscular Hemoglobin Concent 33.3 g/dl RDW Standard Deviation 43.6 fL RDW Coefficient of Variation 13.7 % Platelet Count 164 K/uL Mean Platelet Volume 11.4 fL Sodium Level 142 mmol/L Potassium Level 3.2 mmol/L Chloride Level 109 mmol/L Carbon Dioxide Level 23 mmol/L Anion Gap 10.0 mmol/L Blood Urea Nitrogen 10 mg/dl Creatinine 0.67 mg/dl Est Creatinine Clear Calc Drug Dose 67.5 ml/min Estimated GFR () 95.5 Estimated GFR (Non- 82.4 BUN/Creatinine Ratio 14.9 Random Glucose 91 mg/dl Calcium Level 8.5 mg/dl Magnesium Level 2.3 mg/dl Assessment and Plan 81 y/o F with metabolic encephalopathy related to enterocaccal uti Metabolic encephalopathy/sepsis related to enterococcus in urine that is palomo sensitive blood cultures also positive / coag negative staph, other negative, likely contaminant vancomycin -> levaquin (02/25) ECHO neg for valvular vegetation given previous strep infections also family concerned regarding recent decline over last few weeks since moving to [facility], CT head 02/22 negative for CVA or SAH/SDH Decreased PO intake: trying pt food prefs as per family t/c megace or other stimulant Hypernatremia, will hydrate and encourage po abnormal EKG-->probably secondary to demand ischemia no troponin abnormality Acute on chronic renal failure secondary to sepsis, resolved with hydration and treatment of infection HTN-stable Continue home meds oral thrush on nystatin, improved GERD Pantoprazole 40 mg daily while in-house -LEVEL V DO NO RESUSCITATE Heparin for DVT prevention PT/OT Pt from [facility] Discussion with son and daughter as above, total time spent with pt, chart review, and conversations with family x2 = roughly 70 minutes Daughter, Donna, work # [phone]
[2017-02-26] MEDS: SIMVASTATIN 10 MG TAB PO SCH (20:42)
[2017-02-26 22:40] VITALS: O2SAT 95
[2017-02-27] VITALS: BP 118/89; PULSE 98; TEMP 36.3; O2SAT 100
[2017-02-27] MEDS: SODIUM CHLORIDE 0.45% 1000ML 1,000 ML IV SCH ×3 (05:37→21:24)
[2017-02-27 07:37] LABS: HEMATOCRIT 41.5 % (37-47); MEAN CELL VOLUME 86.8 fL (80-100); MEAN CORPUSCULAR HEMOGLOBIN 29.7 pg (25-34); MEAN CORPUSCULAR HGB CONC 34.2 g/dl (32-36); PLATELET COUNT 184 K/uL (130-400); RED BLOOD COUNT 4.78 M/uL (4.2-5.4); WHITE BLOOD COUNT 8.04 K/uL (4.8-10.8)
[2017-02-27 07:56] VITALS: BP 121/85; PULSE 98; TEMP 36.8; O2SAT 97
[2017-02-27] MEDS: NYSTATIN SUSP 500,000 U/5 ML UDC PO SCH ×4 (08:26→20:00)
[2017-02-27] MEDS: DILTIAZEM HCL 240 MG CAPCR PO SCH (08:26)
[2017-02-27] MEDS: HEPARIN SOD 5000 UNIT/0.5 ML CARP SQ SCH ×2 (08:32→21:25)
[2017-02-27 08:42] LABS: BUN/CREATININE RATIO 17.4 (10-20); CREATININE 0.54 mg/dl (0.60-1.20)
[2017-02-27 08:52] LABS: CALCIUM 8.2 mg/dl (8.5-10.1)
[2017-02-27] MEDS: POTASSIUM CHLR 10 MEQ / WTR 10 MEQ in PREMIXED WATER 100 ML IV SCH ×4 (09:53→15:23)
[2017-02-27] MEDS: LEVOFLOXACIN 750 MG TAB PO SCH (11:15)
[2017-02-27 15:46] VITALS: BP 130/78; PULSE 103; TEMP 36.9; O2SAT 98
[2017-02-27 16:00] VITALS: O2SAT 98
--- NOTE | 2017-02-27 16:34 | Progress Note ---
Subjective Date of Service: Feb 27, 2017. Subjective Pt evaluation today including: conversation w/ patient, conversation w/ family , chart review Pt has continued to not take PO. Able to take meds, however she does try to pocket and spit them out. Daughter present today and feels that this is not much change from when pt was brought to ED. Unable to obtain full ROS from pt, nursing states no emesis, diarrhea, SOB, or concerns of pain from pt. Pt has been mostly sleeping unless she is directly stimulated to wake up. Separate discussions with son and daughter again today. Both indicating that they do not think that their mother would want a feeding tube. Son lives about 2.5hrs away and wants to come on Friday to see pt in person and discuss with pt's daughter. Problem List Medical Problems: (1) Altered mental status Status: Acute (2) Fall Status: Acute (3) Fall Status: Acute (4) Hip pain Status: Acute (5) Hypernatremia Status: Acute (6) Muscle spasm Status: Acute (7) UTI (urinary tract infection) Status: Acute (8) UTI (urinary tract infection) Status: Acute (9) Weakness Status: Acute Objective Vital Signs Date Time Temp Pulse Resp B/P (MAP) Pulse Ox O2 Delivery O2 Flow Rate FiO2 02/27/17 15:46 36.9 103 20 130/78 (95) 98 Room Air 02/27/17 10:03 Room Air 02/27/17 07:56 36.8 98 20 121/85 (97) 97 Room Air 02/27/17 00:00 36.3 98 18 118/89 (99) 100 Room Air 02/27/17 00:00 100 Room Air 02/26/17 22:40 95 Room Air Physical Exam Comments: General Appearance: no apparent distress, + obese Respiratory/Chest: normal breath sounds, no respiratory distress Cardiovascular: regular rate, rhythm, no edema Abdomen: non tender, soft Extremities: non-tender, no pedal edema Neurologic/Psychiatric: alert, + pertinent finding (alert to person), opens eyes to voice, attempts to answer questions but unable to understand Skin: normal color, warm/dry Laboratory Results Last 24 Hours Test 02/27/17 07:02 White Blood Count 8.04 K/uL Red Blood Count 4.78 M/uL Hemoglobin 14.2 g/dL Hematocrit 41.5 % Mean Corpuscular Volume 86.8 fL Mean Corpuscular Hemoglobin 29.7 pg Mean Corpuscular Hemoglobin Concent 34.2 g/dl RDW Standard Deviation 43.3 fL RDW Coefficient of Variation 13.7 % Platelet Count 184 K/uL Mean Platelet Volume 12.0 fL Sodium Level 140 mmol/L Potassium Level 3.0 mmol/L Chloride Level 108 mmol/L Carbon Dioxide Level 20 mmol/L Anion Gap 12.0 mmol/L Blood Urea Nitrogen 9 mg/dl Creatinine 0.54 mg/dl Est Creatinine Clear Calc Drug Dose 83.7 ml/min Estimated GFR () 102.6 Estimated GFR (Non- 88.5 BUN/Creatinine Ratio 17.4 Random Glucose 85 mg/dl Calcium Level 8.2 mg/dl Vitamin B12 Level 526 pg/mL Folate 5.31 ng/mL Assessment and Plan 81 y/o F with metabolic encephalopathy related to enterococcal uti Metabolic encephalopathy/sepsis related to enterococcus in urine that is palomo sensitive blood cultures also positive /2 coag negative staph, other negative, likely contaminant vancomycin -> levaquin (02/25) ECHO neg for valvular vegetation given previous strep infections also family concerned regarding recent decline over last few weeks since moving to SNF, CT head 02/22 negative for CVA or SAH/SDH Decreased PO intake: trying pt food prefs as per family t/c megace or other stimulant Hypernatremia, will hydrate and encourage po abnormal EKG-->probably secondary to demand ischemia no troponin abnormality Acute on chronic renal failure secondary to sepsis, resolved with hydration and treatment of infection HTN-stable Continue home meds oral thrush on nystatin, improved GERD Pantoprazole 40 mg daily while in-house -LEVEL V DO NO RESUSCITATE Heparin for DVT prevention PT/OT Pt from [facility], family moving towards transfer back to with hospice care but ongoing discussions Discussion with son and daughter again as above, total time spent with pt, chart review, and conversations with family x2 = roughly 75 minutes DaughterDonna, work # [phone]
[2017-02-27] MEDS: SIMVASTATIN 10 MG TAB PO SCH (21:00)
[2017-02-28 00:25] VITALS: BP 123/84; PULSE 102; TEMP 36.6; O2SAT 97
[2017-02-28] MEDS: SODIUM CHLORIDE 0.45% 1000ML 1,000 ML IV SCH ×3 (05:30→20:21)
[2017-02-28 07:18] VITALS: BP 119/77; PULSE 110; TEMP 36.8; O2SAT 98
[2017-02-28] MEDS: NYSTATIN SUSP 500,000 U/5 ML UDC PO SCH ×4 (08:00→20:20)
[2017-02-28] MEDS: CYANOCOBALAMIN 500 MCG TAB (VIT B-12) PO SCH (08:00)
[2017-02-28] MEDS: DILTIAZEM HCL 240 MG CAPCR PO SCH (08:00)
[2017-02-28] MEDS: HEPARIN SOD 5000 UNIT/0.5 ML CARP SQ SCH ×2 (09:35→20:32)
[2017-02-28 12:55] LABS: BUN/CREATININE RATIO 15.7 (10-20); CALCIUM 8.3 mg/dl (8.5-10.1); CREATININE 0.47 mg/dl (0.60-1.20); POTASSIUM 3.1 mmol/L (3.5-5.1)
[2017-02-28] MEDS: LEVOFLOXACIN / D5W 750 MG in PREMIXED IN D5W 150 ML IV SCH (13:08)
[2017-02-28 16:01] VITALS: BP 116/84; PULSE 116; TEMP 36.9; O2SAT 99
[2017-02-28 17:12] VITALS: PULSE 109
--- NOTE | 2017-02-28 18:02 | Progress Note ---
Subjective Date of Service: Feb 28, 2017. Subjective Pt evaluation today including: conversation w/ patient Pt has continued to not take PO. She does wake to stimulus, but her speech has become more limited. No concerns from nursing about diarrhea, emesis, concerns for pain. Pt has not had a bowel movement for 5 days. Unable to obtain full ROS given pt's mental status Problem List Medical Problems: (1) Altered mental status Status: Acute (2) Fall Status: Acute (3) Fall Status: Acute (4) Hip pain Status: Acute (5) Hypernatremia Status: Acute (6) Muscle spasm Status: Acute (7) UTI (urinary tract infection) Status: Acute (8) UTI (urinary tract infection) Status: Acute (9) Weakness Status: Acute Objective Vital Signs Date Time Temp Pulse Resp B/P (MAP) Pulse Ox O2 Delivery O2 Flow Rate FiO2 02/28/17 17:12 109 02/28/17 16:20 Room Air 02/28/17 16:01 36.9 116 20 116/84 (95) 99 Room Air 02/28/17 08:03 Room Air 02/28/17 07:18 36.8 110 18 119/77 (91) 98 Room Air 02/28/17 00:25 36.6 102 20 123/84 (97) 97 02/28/17 00:00 Room Air Physical Exam Comments: General Appearance: no apparent distress, + obese Respiratory/Chest: normal breath sounds, no respiratory distress Cardiovascular: regular rate, rhythm, no edema Abdomen: non tender, soft Extremities: non-tender, no pedal edema Neurologic/Psychiatric: alert, + pertinent finding (alert to person), opens eyes to voice, attempts to answer questions but unable to understand, moving all extremities, neg facial droop Skin: normal color, warm/dry Laboratory Results Last 24 Hours Test 02/28/17 12:11 Sodium Level 142 mmol/L Potassium Level 3.1 mmol/L Chloride Level 109 mmol/L Carbon Dioxide Level 19 mmol/L Anion Gap 14.0 mmol/L Blood Urea Nitrogen 7 mg/dl Creatinine 0.47 mg/dl Est Creatinine Clear Calc Drug Dose 96.2 ml/min Estimated GFR () 107.4 Estimated GFR (Non- 92.6 BUN/Creatinine Ratio 15.7 Random Glucose 93 mg/dl Calcium Level 8.3 mg/dl Assessment and Plan 81 y/o F with metabolic encephalopathy related to enterococcal uti Metabolic encephalopathy/sepsis related to enterococcus in urine that is palomo sensitive blood cultures also positive 1/2 coag negative staph, other negative, likely contaminant vancomycin -> levaquin (02/25), pt has stopped taking PO and will convert to IV as family would like full course of tx for UTI ECHO neg for valvular vegetation given previous strep infections also family concerned regarding recent decline over last few weeks since moving to SNF, CT head 02/22 negative for CVA or SAH/SDH Decreased PO intake: trying pt food prefs as per family t/c megace or other stimulant, family uncertain about this as pt will not take other meds Decreased bowel movements: in the setting of inability to take PO and no ambulation Pt has no signs of obstruction or pain, VSS Will avoid enema at this time given pt is comfortable and family moving towards comfort care/hospice Hypernatremia, will hydrate and encourage po abnormal EKG-->probably secondary to demand ischemia no troponin abnormality Acute on chronic renal failure secondary to sepsis, resolved with hydration and treatment of infection HTN-stable Continue home meds oral thrush on nystatin, improved GERD Pantoprazole 40 mg daily while in-house -LEVEL V DO NO RESUSCITATE Heparin for DVT prevention PT/OT Pt from [place], family moving towards transfer back to with hospice care but ongoing discussions. Son will not be able to be here from out of town until Friday and more decisions will be made at that time. Daughter, Donna, work # [phone]
[2017-02-28] MEDS: SIMVASTATIN 10 MG TAB PO SCH (20:21)
[2017-02-28 23:57] VITALS: BP 134/88; PULSE 111; TEMP 36.9; O2SAT 96
[2017-03-01] MEDS: SODIUM CHLORIDE 0.45% 1000ML 1,000 ML IV SCH ×3 (05:25→20:24)
[2017-03-01 07:41] LABS: CREATININE 0.45 mg/dl (0.60-1.20)
[2017-03-01] MEDS: CYANOCOBALAMIN 500 MCG TAB (VIT B-12) PO SCH (08:00)
[2017-03-01] MEDS: DILTIAZEM HCL 240 MG CAPCR PO SCH (08:00)
[2017-03-01 08:01] VITALS: BP 82/59; PULSE 117; TEMP 36; O2SAT 96
[2017-03-01] MEDS: NYSTATIN SUSP 500,000 U/5 ML UDC PO SCH ×4 (09:05→20:23)
[2017-03-01] MEDS: HEPARIN SOD 5000 UNIT/0.5 ML CARP SQ SCH ×2 (09:34→20:48)
[2017-03-01] MEDS: LEVOFLOXACIN / D5W 750 MG in PREMIXED IN D5W 150 ML IV SCH (11:53)
[2017-03-01 15:40] VITALS: BP 128/90; PULSE 115; TEMP 36.9; O2SAT 96
--- NOTE | 2017-03-01 16:46 | Progress Note ---
Subjective Date of Service: Mar 01, 2017. Subjective Pt evaluation today including: conversation w/ patient, conversation w/ family , physical exam, chart review, lab review, review of studies, review of inpatient medication list Voiding: cohen catheter in place Pt has continued to not take PO. She does wake to stimulus, but her speech has become more limited. No concerns from nursing about diarrhea, emesis, concerns for pain. Pt has had a bowel movement yesterday, no BM reported today. Problem List Medical Problems: (1) Altered mental status Status: Acute (2) Fall Status: Acute (3) Fall Status: Acute (4) Hip pain Status: Acute (5) Hypernatremia Status: Acute (6) Muscle spasm Status: Acute (7) UTI (urinary tract infection) Status: Acute (8) UTI (urinary tract infection) Status: Acute (9) Weakness Status: Acute Review of Systems Unable to obtain full ROS given pt's mental status Objective Vital Signs Date Time Temp Pulse Resp B/P (MAP) Pulse Ox O2 Delivery O2 Flow Rate FiO2 03/01/17 15:40 36.9 115 22 128/90 (103) 96 Room Air 03/01/17 08:01 36.0 117 24 82/59 (67) 96 Room Air 03/01/17 07:59 Room Air 03/01/17 01:07 Room Air 02/28/17 23:57 36.9 111 18 134/88 (103) 96 Room Air 02/28/17 19:50 Room Air 02/28/17 17:12 109 Physical Exam Comments: General Appearance: no apparent distress, + obese Respiratory/Chest: normal breath sounds, no respiratory distress Cardiovascular: regular rate, rhythm, no edema Abdomen: non tender, soft Extremities: non-tender, no pedal edema Neurologic/Psychiatric: alert, + pertinent finding (alert to person), opens eyes to voice, attempts to answer questions but unable to understand, moving all extremities, neg facial droop Skin: normal color, warm/dry Laboratory Results Last 24 Hours Test 03/01/17 06:22 Creatinine 0.45 mg/dl Est Creatinine Clear Calc Drug Dose 100.5 ml/min Estimated GFR () 108.9 Estimated GFR (Non- 94.0 Assessment and Plan 81 y/o F with metabolic encephalopathy related to enterococcal uti Metabolic encephalopathy/sepsis related to enterococcus in urine that is palomo sensitive blood cultures also positive / coag negative staph, other negative, likely contaminant vancomycin -> levaquin (02/25), pt has stopped taking PO and will convert to IV as family would like full course of tx for UTI ECHO neg for valvular vegetation given previous strep infections also family concerned regarding recent decline over last few weeks since moving to SNF, CT head 02/22 negative for CVA or SAH/SDH Decreased PO intake: trying pt food prefs as per family t/c megace or other stimulant, family uncertain about this as pt will not take other meds Decreased bowel movements: in the setting of inability to take PO and no ambulation Pt has no signs of obstruction or pain, VSS Will avoid enema at this time given pt is comfortable and family moving towards comfort care/hospice Hypernatremia, will hydrate and encourage po abnormal EKG-->probably secondary to demand ischemia no troponin abnormality Acute on chronic renal failure secondary to sepsis, resolved with hydration and treatment of infection HTN-stable Continue home meds oral thrush on nystatin, improved GERD Pantoprazole 40 mg daily while in-house -LEVEL V DO NO RESUSCITATE Heparin for DVT prevention PT/OT Pt from [facility], family moving towards transfer back to with hospice care but ongoing discussions. Discuss with pt son is detail, and he is agree to move forward towards hospice care and transfer to [facility]. Daughter, Donna, work # [phone] Continued [facility] stay due to: other Discharge planning: home with Hospice
[2017-03-01] MEDS: SIMVASTATIN 10 MG TAB PO SCH (20:24)
[2017-03-02 00:36] VITALS: BP 140/95; PULSE 114; TEMP 36.9; O2SAT 96
[2017-03-02] MEDS: SODIUM CHLORIDE 0.45% 1000ML 1,000 ML IV SCH (05:58)
[2017-03-02 06:03] LABS: HEMATOCRIT 40.7 % (37-47); MEAN CORPUSCULAR HEMOGLOBIN 29.6 pg (25-34); MEAN CORPUSCULAR HGB CONC 34.9 g/dl (32-36); MEAN PLATELET VOLUME 11.2 fL (7.4-10.4); PLATELET COUNT 295 K/uL (130-400); RED BLOOD COUNT 4.79 M/uL (4.2-5.4); WHITE BLOOD COUNT 11.36 K/uL (4.8-10.8)
[2017-03-02 07:10] VITALS: BP 147/92; PULSE 115; TEMP 36.9; O2SAT 95
[2017-03-02] MEDS: CYANOCOBALAMIN 500 MCG TAB (VIT B-12) PO SCH (08:00)
[2017-03-02] MEDS: DILTIAZEM HCL 240 MG CAPCR PO SCH (08:00)
[2017-03-02] MEDS: NYSTATIN SUSP 500,000 U/5 ML UDC PO SCH ×2 (08:45→11:57)
[2017-03-02] MEDS: HEPARIN SOD 5000 UNIT/0.5 ML CARP SQ SCH (08:52)
--- NOTE | 2017-03-02 10:50 | Discharge Instructions ---
Discharge Instructions Date of Service Mar 02, 2017. Admission Reason for Admission: Sepsis Discharge Discharge Diagnosis / Problem: urospeisi Discharge Goals Goal(s): Decrease discomfort, Improve function, Improve disease control, Prevent Disease Progression Activity Recommendations Activity Limitations: per Instructions/Follow-up section . Instructions / Follow-Up Instructions / Follow-Up pt is discharge to longterm home facility [facility]. Pt will be going through evaluation of hospice care. Current Hospital Diet Patient's current hospital diet: Regular Diet Discharge Diet Recommended Diet: Clear Liquid Diet Fluid Restriction: None Pending Studies Studies pending at discharge: no Medical Emergencies . Who to Call and When: Medical Emergencies: If at any time you feel your situation is an emergency, please call 911 immediately. . Non-Emergent Contact Non-Emergency issues call your: Primary Care Provider . . "Provider Documentation" section prepared by Jacinta Fischer . VTE Core Measure Inpt VTE Proph given/why not?: Unfractionated heparin ARIANA, Ria Sarmiento, SCD 's
--- NOTE | 2017-03-02 10:56 | Discharge Summary ---
Discharge Summary Date of Service Mar 02, 2017. Discharge Summary Admission Date: Feb 21, 2017 at 13:49 Discharge Date: Mar 02, 2017 [facility] Principal Diagnosis: sepsis Problems/Secondary Diagnoses: AMS Immunizations: Have You Had Influenza Vaccine: N/A History of Tetanus Vaccine?: Unknown History of Pneumococcal: Yes History of Hepatitis B Vaccine: No Discharge Exam Pt is seen and examined by me. Pt mental status does not change does open her eyes if you call her name loud and multiple times and than go back to sleep. Pt does not follow any verbal command except as mentioned above. Pt family decided to take her back to [facility] for hospice care. Hospital Course 81 y/o F with metabolic encephalopathy related to enterococcal uti Metabolic encephalopathy/sepsis related to enterococcus in urine that is palomo sensitive blood cultures also positive / coag negative staph, other negative, likely contaminant vancomycin -> levaquin (02/25), pt has stopped taking PO and will convert to IV as family would like full course of tx for UTI ECHO neg for valvular vegetation given previous strep infections also family concerned regarding recent decline over last few weeks since moving to SNF, CT head 02/22 negative for CVA or SAH/SDH Decreased PO intake: trying pt food prefs as per family t/c megace or other stimulant, family uncertain about this as pt will not take other meds Decreased bowel movements: in the setting of inability to take PO and no ambulation Pt has no signs of obstruction or pain, VSS Will avoid enema at this time given pt is comfortable and family moving towards comfort care/hospice Hypernatremia, will hydrate and encourage po abnormal EKG-->probably secondary to demand ischemia no troponin abnormality Acute on chronic renal failure secondary to sepsis, resolved with hydration and treatment of infection HTN-stable Continue home meds oral thrush on nystatin, improved GERD Pantoprazole 40 mg daily while in-house -LEVEL V DO NO RESUSCITATE Heparin for DVT prevention PT/OT Pt from [facility], family moving towards transfer back to with hospice care but ongoing discussions. Discuss with pt son is detail, and he is agree to move forward towards hospice care and transfer to [facility]. we talk to case management as well daughter today, to transfer pt to [facility] for hospice. DaughterDonna, work # [phone] Total Time Spent: Greater than 30 minutes This includes examination of the patient, discharge planning, medication reconciliation, and communication with other providers. Discharge Instructions Please refer to the electronic Patient Visit Report (Discharge Instructions) for additional information. Follow-Up As per [facility]
[2017-03-02] MEDS: LEVOFLOXACIN / D5W 750 MG in PREMIXED IN D5W 150 ML IV SCH (11:30)
[2017-03-02 11:52] VITALS: BP 147/92; PULSE 115; TEMP 36.9; O2SAT 95
[2017-03-02] MEDS ORDERED: NURSING VERBAL MED ORDER ONE (12:00)
[2017-03-02] MEDS ORDERED: MoRPHine SULFATE 2 MG/ML CARP IV STA (12:06)
== END 2017-03-02 13:10 | DRG 871 ==
LOC: EDBD 11:27 → C.EDA 11:28 → C.2E 13:49 → EDBEDREQ 14:00 → ENRESERV 14:20 → C.MS4W 02-23 18:41
PROVIDERS: ADMIT Hospitalist; ATTEND Family Medicine
DX: A41.9 Sepsis, unspecified organism (principal); G93.41 Metabolic encephalopathy; E87.0 Hyperosmolality and hypernatremia; B37.0 Candidal stomatitis; Z66 Do not resuscitate; I10 Essential (primary) hypertension; F03.90 Unspecified dementia, unspecified severity, without behavioral disturbance, psychotic disturbance, mood disturbance, and anxiety; E78.5 Hyperlipidemia, unspecified; K21.9 Gastro-esophageal reflux disease without esophagitis